=== PATIENT | female | born 1965 | race Caucasian/White ===

== ENCOUNTER 2017-04-25 09:40 | Outpatient (RCR) | payer OTHER ==
[~2017-04-25 09:40] MED LIST: ALEVE 220MG220 MG PO; CEPHALEXIN500 M1 PO; CIPRO 500MG TA500 MG PO; EC NAPROSYN500 MG PO; EC-NAPROSYN500 MG PO; EXCEDRIN TENSIO1 TAB PO; MOTRIN 200200 MG/TAB PO; NO HOME MEDICATIONS; NORCO 325 MG-51 TAB PO; PYRIDIUM 100MG100 MG PO; TYLENOL 500MG500 MG PO; ULTRAM 50MG TAB50 MG PO
== END 2017-05-25 10:38 ==
LOC: WSOH 09:40
DX: S39.012A Strain of muscle, fascia and tendon of lower back, initial encounter (principal); M62.830 Muscle spasm of back; F17.210 Nicotine dependence, cigarettes, uncomplicated; W01.198A Fall on same level from slipping, tripping and stumbling with subsequent striking against other object, initial encounter; Y99.0 Civilian activity done for income or pay

== ENCOUNTER 2018-07-15 16:18 | Inpatient (IN) | payer BC ==
[~2018-07-15] VITALS: Ht 167.6 cm; Wt 73.1 kg
[2018-07-15 16:47] LABS: COLLECTION METHOD CLEAN CATCH
[2018-07-15 16:54] LABS: BASO % 0.2 % (0.0-2.0); EOS % 0.2 % (0-4.0); GRAN # 14.2 (1.4-6.5); GRAN % 80.6 % (42.2-75.2); HEMATOCRIT 41.5 % (37.0-47.0); HEMOGLOBIN 13.9 g/dl (12.5-16.0); LYMPH # 1.9 (1.2-3.4); LYMPH % 10.8 % (20.0-51.0); MEAN CELL VOLUME 89 fl (80.0-100.0); MEAN CORPUSCULAR HEMOGLOBIN 30 pg (27.0-31.0); MEAN CORPUSCULAR HGB CONC 34 g/dl (33.0-37.0); MONO # 1.3 (0.1-0.6); MONO % 7.6 % (1.7-9.3); PLATELET COUNT 212 K/mm3 (130-400); RED BLOOD COUNT 4.69 M/mm3 (4.10-5.30); REDCELL DISTRIBUTION WIDTH-CV 12.2 % (11.5-14.5)
[2018-07-15 16:56] LABS: PH 6 (5-8); SQUAMOUS EPITHELIAL 0-2 /hpf; URINE APPEARANCE Clear; URINE BACTERIA None Seen /hpf; URINE BILIRUBIN Negative (NEGATIVE); URINE BLOOD Negative (NEGATIVE); URINE COLOR Yellow; URINE GLUCOSE 3+ (NEGATIVE); URINE KETONE Trace (NEGATIVE); URINE LEUKOCYTE ESTERASE Negative (NEGATIVE); URINE NITRATE Negative (NEGATIVE); URINE PROTEIN(semi-quant) Negative (NEGATIVE); URINE UROBILINOGEN >=4.0 mg/dL (NEGATIVE)
[2018-07-15 17:23] LABS: ALANINE AMINOTRANSFERASE 9 U/L (9-52); ALKALINE PHOSPHATASE 194 U/L (50-136); ANION GAP 12 mmol/L (7-16); AST,SGOT 21 U/L (15-37); BILIRUBIN,TOTAL 0.9 mg/dL (0.0-1.0); BLOOD UREA NITROGEN 9 mg/dL (7-17); C-REACTIVE PROTEIN 8.3 mg/dL (0.0-0.9); CALCIUM 9.5 mg/dL (8.4-10.2); CARBON DIOXIDE 19 mmol/L (22-30); CHLORIDE 105 mmol/L (98-107); CREATININE, serum 0.43 (0.52-1.25); GLUCOSE 209 mg/dL (74-106); POTASSIUM 3.8 mmol/L (3.4-5.0); SODIUM 136 mmol/L (137-145); TOTAL PROTEIN 8.1 gm/dL (6.4-8.2)
[2018-07-15 17:39] LABS: TROPONIN-I < 0.012 ng/mL (0.000-0.035)
[2018-07-15] MEDS ORDERED: ADVIL200 MG PO (19:30)
[2018-07-15] MEDS ORDERED: ALEVE 220MG220 MG PO (19:30)
[2018-07-15] MEDS ORDERED: TYLENOL 500MG500 MG PO (19:30)
[2018-07-15 19:55] VITALS: BP 178/63; PULSE 66; TEMP 98.2
[2018-07-15 20:33] VITALS: BP 114/50; PULSE 107; TEMP 98.5
--- NOTE | 2018-07-15 23:59 | NUR ---
Patient arrived to medical floor room 308 from ER at approximately 2009. Alert and oriented, and able to make needs known. Denies having pain and discomfort at this time. Peripheral IV to left forearm. NS running at 150 ml/hr at this time. Site is without redness, warmth, swelling, and pain. Has an occasional moist cough. Reports sputum is white/frothy. Unable to observe. Explained that we need to obtain a sputum culture and voices understanding. Not obtained at this time. LS CTA upper lobes, diminished lower lobes. Denies SOB and dyspnea. Reports thick yellow/green nasal drainage, non observed at this time. HRR-tachycardia. BSAx4. No edema noted. RVP collected and sent to lab. Awaiting results. Droplet precautions at this time while waiting for results. Explained to patient that UA was needed as well, and voices understanding. Not obtained at this time. Voices no questions, needs, or concerns at this time. Call light is within reach.
[2018-07-16 00:17] VITALS: BP 113/52; PULSE 105; TEMP 98
--- NOTE | 2018-07-16 02:43 | NUR ---
Urine sample obtained and taken to lab. Reminded patient that we still need a sputum sample, and voices understanding. Denies having any questions, needs, or concerns at this time. Resting in bed with call light within reach. Continues to have frequent moist cough. Remains on droplet isolation for positive rhinovirus and enterovirus. Voices understanding.
--- NOTE | 2018-07-16 03:25 | NUR ---
PT ASKED THAT I NOT WAKE HER. RESUME TX @ 0800
[2018-07-16 04:56] VITALS: BP 132/55; PULSE 103; TEMP 98
[2018-07-16 05:31] LABS: BASO % 0.3 % (0.0-2.0); EOS # 0.1 (0.0-0.7); EOS % 0.7 % (0-4.0); GRAN # 10.2 (1.4-6.5); GRAN % 74.3 % (42.2-75.2); LYMPH # 2.2 (1.2-3.4); LYMPH % 15.7 % (20.0-51.0); MEAN CELL VOLUME 91 fl (80.0-100.0); MEAN CORPUSCULAR HGB CONC 32 g/dl (33.0-37.0); MEAN PLATELET VOLUME 9.8 fl (7.4-10.4); MONO # 1.1 (0.1-0.6); MONO % 8.2 % (1.7-9.3); PLATELET COUNT 185 K/mm3 (130-400); RED BLOOD COUNT 4.05 M/mm3 (4.10-5.30); REDCELL DISTRIBUTION WIDTH-CV 12.2 % (11.5-14.5)
[2018-07-16 05:36] LABS: HEMATOCRIT 36.7 % (37.0-47.0); MEAN CORPUSCULAR HEMOGLOBIN 29 pg (27.0-31.0)
[2018-07-16 05:37] LABS: CALCIUM 8.9 mg/dL (8.4-10.2); CREATININE, serum 0.44 (0.52-1.25); HEMOGLOBIN 11.8 g/dl (12.5-16.0); POTASSIUM 3.8 mmol/L (3.4-5.0)
--- NOTE | 2018-07-16 06:11 | NUR ---
Patient continues to have moist cough. Unable to produce sputum for sputum sample at this time. NS continues to run at 150 ml/hr to right forearm. Resting in bed with eyes closed at this time. Call light is within reach.
--- NOTE | 2018-07-16 07:22 | NUR ---
Report given to day shift nurse.
[2018-07-16 07:29] VITALS: BP 131/81; PULSE 115; TEMP 98
--- NOTE | 2018-07-16 07:45 | NUR ---
PT HAD C/O HEADACHE THIS MORING. THIS NURSE ADMINSTERED PO TYLENOL, PT STATED THAT IT HAD HELPED SOME, BUT NOT COMPLELTY GOT RID OF IT.
--- NOTE | 2018-07-16 09:25 | NUR ---
Camgian MicrosystemsBrian TECH CALLED THIS NURSE, PT THI RATE ALARM ON TELLE WENT OFF AT THIS TIME. PROVIDER INTO SEE PT RIGHT NOW.
--- NOTE | 2018-07-16 09:47 | NUR ---
NENITA met with the patient to discuss discharge plan. 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 Her son, Nolan, lives in her [place] home. She reports independence with ADLs and does not use any DME. The patient does not have a PCP, but she was interested in being set up with one. NENITA provided the patient with a list of providers in [place]. The patient preferred to be set up with a PCP at the [facility]. NENITA informed the patient's nurse practitioner. The patient does not have advanced directives and she was not interested in completing them at this time. The patient plans to return home upon discharge. No additional needs at this time.
[2018-07-16 11:33] VITALS: BP 118/70; PULSE 98; TEMP 98.2
[2018-07-16 16:32] VITALS: BP 129/60; PULSE 90; TEMP 98.2
--- NOTE | 2018-07-16 17:00 | NUR ---
PT HAD C/O HEADACHE THIS AFTERNOON. STATED THAT IT HAD STILL BEEN THE SAME HEADACHE THAT IT HAS BEEN THERE, THE TYLENOL THIS MORNING HELPED ONLY A LITTLE BIT BUT HEADACHE INCREASED BACK AGAIN. THIS NURSE CALLED ANKIT AND ASKED FOR AN ORDER. ANKIT PUT IN AN ORDER FOR AN ICE PACK. THIS NURSE INFORMED PT. PT WAS EATING SUPPER AT THIS TIME, I TOLD PT THAT AFTER SUPPER WE COULD TRY THE ICE IF SHE WANTED, AND WILL PASS IT ON TO THE FLEXOGRAPHIC PRESS SET UP OPERATOR NURSE.
[2018-07-16 20:00] VITALS: BP 124/57; PULSE 88; TEMP 98.2
--- NOTE | 2018-07-16 21:07 | NUR ---
Patient assessed at aproximately 1930. Denied having any pain or discomfort at that time. Peripheral INT to right AC flushed. Site is without redness, warmth, swelling, and pain. AV fistula to left upper arm. Postive bruit and thrill. No dressing to area. Continues to have moist cough. Unable to produce sputum. Denies having SOB and dyspnea. LS with crackles in upper lobes, diminished in lower lobes. On room air during assessment, oxygen level 93% RA. HRR. BSAx4. No edema. Voices no questsions, needs, or concerns. In bed visiting with company. Call light is within reach.
--- NOTE | 2018-07-16 21:16 | NUR ---
Patient assessed at approximately 1930. Denied having pain and discomfort. Peripheral IV to right forearm with NS running at 75 ml/hr. Site is without redness, warmth, swellign, and pain. Continues to have moist cough, unable to produce any sputum. Denies having SOB and dyspnea. LS CTA. Continues have have runny nose, with yellow nasal drainage. BSAx4. No edema. Resting in bed with eyes closed at this time. Call light is within reach.
--- NOTE | 2018-07-17 04:28 | NUR ---
PATIENT LAYING IN BED WITH EYES CLOSED. PRESENTS WITH RELAXED BODY POSTURE AND EVEN NON LABORED RESPIRATIONS. ON ROOM AIR. CALL LIGHT WITHIN REACH. CONTINUES ON DROPLET PRECAUTIONS FOR RHINOVIRUS AND ENTEROVIRUS.
[2018-07-17 05:48] VITALS: BP 147/78; PULSE 76; TEMP 98.3
[2018-07-17 06:03] LABS: BASO % 0.3 % (0.0-2.0); EOS # 0.1 (0.0-0.7); EOS % 1.1 % (0-4.0); GRAN # 7.1 (1.4-6.5); GRAN % 67.3 % (42.2-75.2); HEMOGLOBIN 11.6 g/dl (12.5-16.0); LYMPH # 2.2 (1.2-3.4); LYMPH % 20.3 % (20.0-51.0); MEAN CELL VOLUME 90 fl (80.0-100.0); MEAN CORPUSCULAR HEMOGLOBIN 29 pg (27.0-31.0); MEAN CORPUSCULAR HGB CONC 33 g/dl (33.0-37.0); MONO # 1.1 (0.1-0.6); MONO % 10.5 % (1.7-9.3); PLATELET COUNT 187 K/mm3 (130-400); RED BLOOD COUNT 3.96 M/mm3 (4.10-5.30); REDCELL DISTRIBUTION WIDTH-CV 12.1 % (11.5-14.5)
[2018-07-17 06:07] LABS: HEMATOCRIT 35.6 % (37.0-47.0)
[2018-07-17 06:18] LABS: CREATININE, serum 0.43 (0.52-1.25); POTASSIUM 3.7 mmol/L (3.4-5.0)
--- NOTE | 2018-07-17 08:09 | NUR ---
PT REPORTS THAT SHE IS FEELING ALOT BETTER THIS AM. STATES THAT SHE NO LONGER HAS THE HEADACHE SHE HAD YESTERDAY. PT INQUIRING ABOUT DISCHARGE TODAY, THIS NURSE INFORMED PT THAT I WILL UPDATE HER ON ANYTHING I HEAR.
[2018-07-17 08:27] VITALS: BP 131/50; PULSE 89; TEMP 98.5
[2018-07-17] MEDS ORDERED: ZITHROMAX500 M2 PO (10:20)
[2018-07-17] MEDS ORDERED: INDERAL 10MG10 MG PO (10:20)
[2018-07-17] MEDS ORDERED: TAPAZOLE10 MG PO (10:22)
[2018-07-17] MEDS ORDERED: GLUCOPHAGE500 MG/TAB PO (10:24)
--- NOTE | 2018-07-17 10:30 | NUR ---
PT SEEN BY DR MCCLOUD AT [facility] AND WAS NOTIFIED ABOUT DISCHARGE. PT CALLED SON AND WAITING FOR SON TO COME PICK HER UP.
--- NOTE | 2018-07-17 12:20 | NUR ---
PT SON ARRIVED TO TAKE PT HOME. IV REMOVED. PT EDUCATOIN WAS PROVIDED, AND PAPERS SIGNED. THIS NURSE ESCORTED PT OUT OF FACILITY.
== END 2018-07-17 12:20 | disposition home or self-care (01) | DRG 194 ==
LOC: COL.ER 16:18 → MEDICAL 18:31 → EDBEDREQ 19:10 → MEDICAL 07-17 12:20
PROVIDERS: Emergency Medicine; Nurse Practitioner Family; ADMIT Family Medicine
DX: J18.9 Pneumonia, unspecified organism (principal); R65.10 Systemic inflammatory response syndrome (SIRS) of non-infectious origin without acute organ dysfunction; E87.2 Acidosis; E11.9 Type 2 diabetes mellitus without complications; E05.90 Thyrotoxicosis, unspecified without thyrotoxic crisis or storm; G89.29 Other chronic pain; F17.210 Nicotine dependence, cigarettes, uncomplicated; B34.8 Other viral infections of unspecified site
CPT/HCPCS: 99222-AI; 99239; A4216; J0696; J1650; J1815; J1956; J2405; J7030

== ENCOUNTER → 2018-07-30 | Outpatient (CLI) | payer BC ==
[~2018-07-30] MED LIST changes: +ADVIL200 MG PO; +GLUCOPHAGE500 MG/TAB PO; +INDERAL 10MG10 MG PO; +TAPAZOLE10 MG PO; +ZITHROMAX500 M2 PO
== END ==
LOC: COL.RAD 08:48
DX: E05.00 Thyrotoxicosis with diffuse goiter without thyrotoxic crisis or storm (principal)
CPT/HCPCS: A9516

== ENCOUNTER 2020-01-18 15:59 | Inpatient (IN) | payer BC ==
[2020-01-18] VITALS (40 sets, daily range): BP systolic 126–149; BP diastolic 61–88; PULSE 121–138; TEMP 97.3–98.5; O2SAT 84–100
[~2020-01-18] VITALS: Ht 175.3 cm; Wt 77.2 kg
[2020-01-18 16:44] LABS: HEMATOCRIT 38.7 % (37.0-47.0); HEMOGLOBIN 13.1 g/dl (12.5-16.0); MEAN CELL VOLUME 86 fl (80.0-100.0); MEAN CORPUSCULAR HEMOGLOBIN 29 pg (27.0-31.0); MEAN CORPUSCULAR HGB CONC 34 g/dl (33.0-37.0); MEAN PLATELET VOLUME 10.6 fl (7.4-10.4); PLATELET COUNT 163 K/mm3 (130-400); RED BLOOD COUNT 4.49 M/mm3 (4.10-5.30); REDCELL DISTRIBUTION WIDTH-CV 12.6 % (11.5-14.5)
[2020-01-18 16:50] LABS: INR 1.2 (0.8-3.0); PROTHROMBIN TIME 12.9 SECONDS (9.7-12.8)
[2020-01-18 17:25] LABS: THYROID STIMULATING HORMONE < 0.015 uIU/mL (0.465-4.680)
[2020-01-18 17:28] LABS: C-REACTIVE PROTEIN 38.4 mg/dL (0.0-0.9)
[2020-01-18 17:55] LABS: ALBUMIN 3.3 gm/dL (3.5-5.0); BILIRUBIN,TOTAL 1.3 mg/dL (0.0-1.0); CALCIUM 9.3 mg/dL (8.4-10.2); CREATININE, serum 0.52 (0.52-1.25); POTASSIUM 3.3 mmol/L (3.4-5.0); TOTAL PROTEIN 6.6 gm/dL (6.4-8.2)
[2020-01-18 18:29] LABS: BAND 22 % (0-10); LYMPHOCYTE 2 % (20.0-51.0); NEUTROPHILS 72 % (42.0-75.2); PLATELET ESTIMATE NORMAL (NORMAL)
[2020-01-18 18:30] LABS: TOXIC GRANULATION PRESENT
--- NOTE | 2020-01-18 22:39 | NUR ---
RECEIVED BEDSIDE REPORT FROM OR NURSE. PATIENT VS WNL. PATIENT ARRIVED TO UNIT ON OXYMASK VIA STRETCH. WILL RESUME CARE AT THIS TIME.
--- NOTE | 2020-01-18 22:45 | NUR ---
RECEIVED ORDER FROM DR. GR TO START PATIENT ON 40MG LOVENOX SUBQ ONCE DAILY AT 0700 ON 01/18.
--- NOTE | 2020-01-18 23:00 | NUR ---
RECEIVED REPORT FROM OR NURSE STATING THAT PATIENTS WOUND MEASUREMENTS WERE [id number]. 5 ROLLS OF KERLIX PACKED INSIDE WOULD. ABD PADS PLACED ON OUTSIDE OF WOUND. PATIENT WEARING MESH UNDERWEAR. INCISION SITE IS CLEAN, DRY AND INTACT. WILL CONTINUE TO MONITOR.
[2020-01-19] VITALS (730 sets, daily range): BP systolic 93–138; BP diastolic 44–71; PULSE 95–120; TEMP 97.5–98.7; O2SAT 67–100
[2020-01-19 01:27] LABS: MAGNESIUM 1.6 mg/dL (1.6-2.3); PHOSPHOROUS 3.7 mg/dL (2.5-4.5); POTASSIUM 3.2 mmol/L (3.4-5.0)
--- NOTE | 2020-01-19 02:04 | NUR ---
Vancomycin Initial Dosing Pharmacy Note Ordering provider: Noah Musa MD Indication/duration: Necrotizing fasciitis/ 10 days Relevant comorbidities: LABS: WBC = 22.7, SCr = 0.52 (Capped at 0.8) Recommendation: Will draw troughs and follow levels. Loading dose: 1.5 grams Maintenance dose: 1.5 grams every 12 hours Trough goal: 15-20 ug/mL
--- NOTE | 2020-01-19 03:00 | NUR ---
RECEIVED ORDERES FROM DOT CASTRO TO START PATIENT ON INSULIN GTT. PATIENT STARTED AT 4UNITS/HR OR 4MLS/HR BASED ON WEIGHT OF 75,5KG. BLOOD GLUCOSE PRIOR TO STARTING INSULIN GTT WAS 225. WILL CHECK BG Q1HR AND TITRATE NEEDED. WILL CONTINUE TO MONITOR
--- NOTE | 2020-01-19 03:30 | NUR ---
CALLED DR. CASTRO AND REPORTED THAT PATIENT HAD RESPIRATIONS BETWEEN 8-12 BREATHS/MIN, VS WNL, BUT BEGINNING TO SLURR WORDS AND GET CONFUSED. RECEIVED ORDER TO DECREASE DILAUDID LICENSED PROSTHETIST/ORTHOTIST PUMP CONTRINUOUS RATE TO 0.1MG
--- NOTE | 2020-01-19 04:00 | NUR ---
CALLED DR. CASTRO AND NOTIFIED OF PATIENT BEGINNING TO SLURR WORDS AND BECOMING INCREASINGLY DROWSY. PATIENT IS EASILY AROUSABLE AND A&O X4 BUT DOSES OFF FREQUENTLY. O2 SATS WNL, RESPIRATIONS 8-12 AND BLOOD PRESSURE READINGS OF SYSTOLIC 80-90S AND DIASTOLIC 50-60S. ASKED DR. CASTRO IF SHE WOULD LIKE DILAUDID PUMP DOSE CHANGED OR DISCONTINUED. STATED SHE WOULD LIKE DILAUDID PUMP KEPT IS AND CONTINUE TO MONITOR.
[2020-01-19 06:23] LABS: MEAN CELL VOLUME 89 fl (80.0-100.0); MEAN CORPUSCULAR HGB CONC 34 g/dl (33.0-37.0); MEAN PLATELET VOLUME 10.9 fl (7.4-10.4); PLATELET COUNT 147 K/mm3 (130-400); RED BLOOD COUNT 3.65 M/mm3 (4.10-5.30); REDCELL DISTRIBUTION WIDTH-CV 12.9 % (11.5-14.5)
[2020-01-19 06:29] LABS: ALBUMIN 2.5 gm/dL (3.5-5.0); BILIRUBIN,TOTAL 1.1 mg/dL (0.0-1.0); CALCIUM 7.8 mg/dL (8.4-10.2); CREATININE, serum 0.46 (0.52-1.25); POTASSIUM 3.6 mmol/L (3.4-5.0); TOTAL PROTEIN 5.4 gm/dL (6.4-8.2)
--- NOTE | 2020-01-19 06:30 | NUR ---
RECEIVED CALL FROM LAB STATING CRITICAL WBC LAB VALUE OF 21.1. TRENDING DOWN FROM WBC OF 22.7 AT ADMISSION. NURSE CALLED DANYELL AND ASKED TO SPEAK WITH PHOTOGRAPH EDITOR PHYSICIAN. NURSE WAS DIRECTED TO DR. SON NURSE WHO STATED PHOTOGRAPH EDITOR PHYSICIAN WAS ON ANOTHER CALL AND WOULD RELAY CRITICAL LAB TO DR. SANCHEZ.
--- NOTE | 2020-01-19 06:30 | NUR ---
RECEIVED CALL FROM [facility] ASKING ABOUT PATIENT STATUS IN REGARDS TO DILAUDID PUMP. NURSE STATED PATIENTS RESPIRATIONS RANGED FROM 8-16 AND O2 SATS REMAINED ABOVE 95% WITH SEVERAL BP READINGS WITH SYSTOLICS IN THE 80-90S AND DIASTOLICS IN THE 50-60S. PATIENT WAS EASILY AROUSABLE AND A&O X4. NURSE TOLD DANYELL THAT DUKE VAUGHN HAD RECENTLY SPOKE WITH DANYELL PRIOR AND HAD SHUT THE DILAUDID PUMP OFF. NURSE RELAYED THAT ENVIRONMENTAL SAMPLING TECHNICIAN DILAUDID PUMP STILL OFF. [facility] NURSE PRACTITIONER PHYSICIAN DR. MEANS'S NURSE RELAYED TO PATIENTS NURSE THAT SHE WOULD LIKE STAT ABG ORDER. PATIENTS NURSE PUT STAT ABG ORDER IN AND ABG DRAWN. PATIENT DOES NOT APPEAR TO BE IN ANY RESPIRATORY DISTRESS, VS WNL. WILL CONITNUE TO MONITOR. PATIENTS NURSE NOTIFIED DR. SON NURSE OF CRITICAL WBC LEVEL OF 21.1 AND STATED IT HAD TRENDED DOWN FROM 22.7. DR. ROBLERO NURSE STATED SHE WOULD RELAY INFORMATION TO DR. SANCHEZ. WILL CONTINUE TO MONITOR
[2020-01-19 06:33] LABS: HEMATOCRIT 32.5 % (37.0-47.0); HEMOGLOBIN 10.9 g/dl (12.5-16.0); MEAN CORPUSCULAR HEMOGLOBIN 30 pg (27.0-31.0)
[2020-01-19 06:56] LABS: ARTERIAL BLD GAS O2 SATURATION 96.3 % (92-100); ARTERIAL BLD GAS TCO2 CT 17.4; ARTERIAL BLOOD GAS BASE EXCESS -9.1 (-2-2); ARTERIAL BLOOD GAS HCO3 16.4 meq/L (22-26); ARTERIAL BLOOD GAS PCO2 34.1 mmHg (35-45); ARTERIAL BLOOD GAS PO2 93.1 mmHg (80-100)
[2020-01-19 07:01] LABS: C-REACTIVE PROTEIN 30.1 mg/dL (0.0-0.9)
[2020-01-19 07:08] LABS: BAND 22 % (0-10); EOSINOPHIL 1 % (0-4); LYMPHOCYTE 10 % (20.0-51.0); NEUTROPHILS 56 % (42.0-75.2); PLATELET ESTIMATE NORMAL (NORMAL)
--- NOTE | 2020-01-19 09:00 | NUR ---
Assessment completed, alert/oriented, vital signs stable/afebrile, alert/oriented, denies pain/ CARTRIDGE FEEDER discontinued, blood sugars in better control/ discontinuing Insulin gtt and FSBS changed to q6h, ABG showed met. acidosis and discussed plan of care with , potassium and Mag being replaced per protocol, no resp.difficulty noted and lungs CTA, heart regular/ slighty tachycardic, distal pulses are palapble, barker patent/ urine dark and we are increasing IVF rate to help with hydration, plans for surgery again for a repeat IND of vaginal/abd abscess with wound vac placement, patient NPO, SCD's in place, will contineu to monitor
--- NOTE | 2020-01-19 12:01 | NUR ---
Chaplain stylesyed outside of door of patient.
--- NOTE | 2020-01-19 13:25 | NUR ---
Settlement Processor met with the patient to complete initial intake. The patient lives in [place]. 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 The patient denies DME use and is independent with ADLs. The patient does not have a PCP but was interested in setting one up. NENITA contacted Pebbles Kory with [employer] and she states that Dr. Briggs and Dr. Toscano have openings and she will look into when the next available new patient appointement is. The patient receives medications from [facility]. The patient does not have DPOA-HC. She was not interested in DPOA-HC form. The patient has two children, Nolan and Dacia, #[phone] and #[phone], respectively. The patient prefers to contact her son Nolan with any updates. The patient to return home at discharge. NENITA collaborated the above information with the patient's nurse.
--- NOTE | 2020-01-19 15:55 | NUR ---
Patient is going to the OR at this time
--- NOTE | 2020-01-19 17:13 | NUR ---
Patient arrived back from the PACU at this time, she is drowsy but arousable, vital signs stable, does not appear to be in any acute pain or discomfort at this time, dressing C/D/I, SCD's applied, will continue to monitor
--- NOTE | 2020-01-19 17:52 | NUR ---
VS remain stable, pain is increasing and will give pain meds as needed
--- NOTE | 2020-01-19 22:25 | NUR ---
PT ALERT AND ORIENTED X 4, ON ROOM AIR, VSS, COMNPLAINS OF PAIN 09/14-GIVEN PRN NORCO EITH REPORTS OF SLIGHT RELIEF. PT TACHYCARDIC AT 110'S. LUNGS CTA. PT HAS GOOD APPETITE AND PASSING GAS, WILL BE NPO AT 0600 FOR PLANNED I&D. BRUMFIELD DRAINING ALBERTINA AND CLOUDY, AWARE DURING THE DAY HENCE IVF INCREASED. ALL PERIPHERAL AND CENTRAL LINE FLUSHING GOOD. DRESSING ON VULVA/LEFT GROIN/PANNUS C/D/I. WILL CONTINUE TO MONITOR.
[2020-01-20] VITALS (530 sets, daily range): BP systolic 110–149; BP diastolic 53–71; PULSE 99–122; TEMP 97.9–98.4; O2SAT 82–100
--- NOTE | 2020-01-20 00:25 | NUR ---
WILL HOLD LOVENOX IN AM PT IS GOING FOR SURGERY AT 133O. DOUBLE CHECKED WITH E-PHARMACY AND AGEED WITH PLAN.
--- NOTE | 2020-01-20 00:55 | NUR ---
PT'S HR MOSTLY AT 115-120'S, ST WITH PACS' PER FOREST MEDICAL RECORD ASSISTANT. VSS. PT ASYMPTOMATIC AND SLEEPING. PAIN MEDICATION GIVEN AN HOUR AGO. PARAMETERS CHANGED PER PA'S ORDER. WILL CONTINUE TO MONITOR.
[2020-01-20 03:38] LABS: COLLECTION METHOD CLEAN CATCH
[2020-01-20 03:47] LABS: MUCOUS Present /lpf; PH 6 (5-8); SQUAMOUS EPITHELIAL 0-2 /hpf; URINE APPEARANCE Clear; URINE BACTERIA None Seen /hpf; URINE BILIRUBIN Negative (NEGATIVE); URINE BLOOD 1+ (NEGATIVE); URINE COLOR Yellow; URINE GLUCOSE 3+ (NEGATIVE); URINE KETONE 2+ (NEGATIVE); URINE LEUKOCYTE ESTERASE Negative (NEGATIVE); URINE NITRATE Negative (NEGATIVE); URINE PROTEIN(semi-quant) Negative (NEGATIVE)
--- NOTE | 2020-01-20 03:58 | NUR ---
PT'S HR HAS BEEN SUSTAINING ON THE 120-125'S AND JUMPS UP TO 130'S IF GET WORKED UP. PT'S VSS STABLE THOUGH EXCEPT FOR HEART RATE. PT COMPLAINTS OF PAIN /, DILAUDID PRN GIVEN. THIS RN CALLED DANYELL AND UPDATED THE NURSE MD IS IN ANOTHER LINE.
--- NOTE | 2020-01-20 04:07 | NUR ---
DRESSING TO OPERATIVE SITE(LEFT LOWER ABDOMEN/PANNUS/VULVA) CHANGED. NEW ABDOMINAL GAUZE APPLIED. KERLIX PACKING LEFT INSIDE WOUND AND ONLY CHANGED ABDOMINAL PAD. NOW C/D/I.
[2020-01-20 05:24] LABS: BASO # 0.1 (0.0-0.2); BASO % 0.8 % (0.0-2.0); EOS # 0.1 (0.0-0.7); EOS % 0.4 % (0-4.0); GRAN # 13.3 (1.4-6.5); GRAN % 83.3 % (42.2-75.2); HEMOGLOBIN 10.9 g/dl (12.5-16.0); LYMPH # 1.4 (1.2-3.4); LYMPH % 8.6 % (20.0-51.0); MEAN CELL VOLUME 88 fl (80.0-100.0); MEAN CORPUSCULAR HEMOGLOBIN 30 pg (27.0-31.0); MEAN CORPUSCULAR HGB CONC 34 g/dl (33.0-37.0); MEAN PLATELET VOLUME 10.6 fl (7.4-10.4); MONO # 0.9 (0.1-0.6); MONO % 5.5 % (1.7-9.3); PLATELET COUNT 175 K/mm3 (130-400); RED BLOOD COUNT 3.65 M/mm3 (4.10-5.30); REDCELL DISTRIBUTION WIDTH-CV 13.2 % (11.5-14.5)
[2020-01-20 05:29] LABS: HEMATOCRIT 32.1 % (37.0-47.0)
[2020-01-20 05:32] LABS: CREATININE, serum 0.45 (0.52-1.25); POTASSIUM 3.8 mmol/L (3.4-5.0)
--- NOTE | 2020-01-20 08:00 | NUR ---
Assessment completed, drowsy but arousable and alert/oriented x4, reporting moderated left lower abd/groin pain at her wound side, [place] and dilaudid given and also repositioning for comfort as well, patient is more tachycardic today rate 120-140/ Sinus on tele with PAC's and [facility] is notified and aware, starting on PO Propranolol, also encouraging patient to do cough/deep breathing exercises as well to help keep lungs expanded and prevent PNA, educated on importance of this as she is a smoker and a high risk, lungs are CTA with diminished lower lobes, assisted with Oral hygiene as well as provided cath care, barker cath is patent and urine output is good, still has IVF infusing at 125/hr, she is now NPO for repeat trip to OR later today for another irrigation/debridement of wound, patient understands plan of care and is cooperative, denies other needs at this time
--- NOTE | 2020-01-20 13:30 | NUR ---
Patient is going to OR for irrigation and debridment of left abd/ groin wound
--- NOTE | 2020-01-20 15:23 | NUR ---
Patient is transferring to the Surgical floor room 324, I have called report to receiving nurse DUKE Chun, patient is currently still in OR and will go to room 324 directly from PACU
--- NOTE | 2020-01-20 16:07 | NUR ---
patient arrived to room 324 from PACU at this times, she is drowsy but arousable, vital signs stable/ still slightly tachycardic, reports some moderate pain and requesting pain meds, taking PO sips at this time, will continue to monitor
--- NOTE | 2020-01-20 18:20 | NUR ---
Patient is doing well post-op, vital signs stable, pain is now better controlled, she is drowsy but arousable, tolerating PO fluids
--- NOTE | 2020-01-20 21:00 | NUR ---
PATIENT ORIENTED X4, BUT DROWSY. DENIES PAIN. FLUIDS INFUSING. SCDS ON. GAVE PATIENT BROTH REQUESTED.
--- NOTE | 2020-01-20 21:30 | NUR ---
CONSENT SIGNED FOR SURGERY TOMORROW.
[2020-01-21] VITALS (13 sets, daily range): BP systolic 127–154; BP diastolic 39–81; PULSE 71–136; TEMP 97.3–99.3
--- NOTE | 2020-01-21 04:55 | NUR ---
PATIENT WAS INCONTINENT OF STOOL. CLEANED PATIENT UP, CHANGED ABD PADS AND MESH UNDERWEAR.
[2020-01-21 06:37] LABS: BASO # 0.1 (0.0-0.2); BASO % 0.6 % (0.0-2.0); EOS # 0.1 (0.0-0.7); EOS % 0.5 % (0-4.0); GRAN # 14.3 (1.4-6.5); GRAN % 82.6 % (42.2-75.2); HEMOGLOBIN 11.4 g/dl (12.5-16.0); LYMPH # 1.5 (1.2-3.4); LYMPH % 8.7 % (20.0-51.0); MEAN CELL VOLUME 89 fl (80.0-100.0); MEAN CORPUSCULAR HEMOGLOBIN 29 pg (27.0-31.0); MEAN CORPUSCULAR HGB CONC 33 g/dl (33.0-37.0); MEAN PLATELET VOLUME 10.9 fl (7.4-10.4); MONO # 1.1 (0.1-0.6); MONO % 6.4 % (1.7-9.3); PLATELET COUNT 198 K/mm3 (130-400); RED BLOOD COUNT 3.91 M/mm3 (4.10-5.30); REDCELL DISTRIBUTION WIDTH-CV 13.2 % (11.5-14.5)
[2020-01-21 06:39] LABS: ALBUMIN 2.6 gm/dL (3.5-5.0); BILIRUBIN,TOTAL 1.3 mg/dL (0.0-1.0); CALCIUM 8.8 mg/dL (8.4-10.2); CREATININE, serum 0.44 (0.52-1.25); HEMATOCRIT 34.7 % (37.0-47.0); MAGNESIUM 1.6 mg/dL (1.6-2.3); POTASSIUM 3.6 mmol/L (3.4-5.0); TOTAL PROTEIN 5.6 gm/dL (6.4-8.2)
--- NOTE | 2020-01-21 08:57 | NUR ---
Pebbles Horn contacted Food Safety Auditor and reports that Dr. Briggs can take patient as her PCP. An appointment will need to be set up as soon as there is a solid discharge date. SW collaborated the above information with the surgical floor SW.
--- NOTE | 2020-01-21 10:00 | NUR ---
Patient alert and oriented, answers questions appropriately. See assessment. Left groin, LLQ dressing with scant drainage noted. Simons catheter patent and draining dark yellow urine. Lung sounds coarse in bases, clear in upper lobes. No c/o at this time.
--- NOTE | 2020-01-21 13:48 | NUR ---
Rubber Molder collaborated with DOT Benavides about discharge planning. Patient may be a candidate for [facility]. Makayla is unsure of discharge date at this time as it will depend who her procedure goes today. NENITA contacted Santiago at [facility] and faxed a referral. Santiago advised that the [place], [place] location is reviewing her case to determine if she qualifies. NENITA will continue to follow.
--- NOTE | 2020-01-21 16:55 | NUR ---
Returns from surgery at this time. Wound vac in place to right groin, RLQ. No c/o at this time.
--- NOTE | 2020-01-21 19:38 | NUR ---
RECEIVED CHANGE OF SHIFT REPORT FROM DAY SHIFT NURSEMIESHA. RECTAL TUBE PLACE PER D.O. TELE IN PLACE. IVF INFUSING WITH NO PROBLEMS.
--- NOTE | 2020-01-21 19:40 | NUR ---
HR INCREASES WITH ACTIVITY, PATIENT DENIES CHEST PAIN OR SHORTNESS OF BREATH DURING ELEVATED HR.
--- NOTE | 2020-01-21 20:00 | NUR ---
WOUND VAC IN PLACE AND IS PATENT, NO CHANGES IN TREATMENT SETTINGS. TELE IN PLACE, DENIES SHORTNESS OF BREATH/CHEST PAIN. OBSERVED NONPRODUCTIVE COARSE SOUNDING COUGH. PATIENT DROWSY, AROUSES WITH NAME CALLED.
[2020-01-22 03:54] VITALS: BP 136/55; PULSE 100; TEMP 98.8
[2020-01-22 06:44] LABS: BASO # 0.1 (0.0-0.2); BASO % 0.4 % (0.0-2.0); EOS # 0.1 (0.0-0.7); EOS % 0.8 % (0-4.0); GRAN % 79.1 % (42.2-75.2); HEMOGLOBIN 10.6 g/dl (12.5-16.0); LYMPH # 1.5 (1.2-3.4); LYMPH % 10.8 % (20.0-51.0); MEAN CELL VOLUME 86 fl (80.0-100.0); MEAN CORPUSCULAR HEMOGLOBIN 29 pg (27.0-31.0); MEAN CORPUSCULAR HGB CONC 34 g/dl (33.0-37.0); MEAN PLATELET VOLUME 10.3 fl (7.4-10.4); MONO # 1.1 (0.1-0.6); MONO % 7.6 % (1.7-9.3); PLATELET COUNT 183 K/mm3 (130-400); RED BLOOD COUNT 3.66 M/mm3 (4.10-5.30); REDCELL DISTRIBUTION WIDTH-CV 12.9 % (11.5-14.5)
--- NOTE | 2020-01-22 07:00 | NUR ---
CHANGE OF SHIFT REPORT GIVEN TO DAY SHIFT NURSESANDRO.
[2020-01-22 07:01] LABS: CALCIUM 8.3 mg/dL (8.4-10.2); CREATININE, serum 0.37 (0.52-1.25); MAGNESIUM 1.5 mg/dL (1.6-2.3)
[2020-01-22 07:07] LABS: HEMATOCRIT 31.4 % (37.0-47.0)
[2020-01-22 07:11] LABS: POTASSIUM 2.8 mmol/L (3.4-5.0)
[2020-01-22 08:00] VITALS: BP 144/62; PULSE 109; TEMP 98.9
[2020-01-22 11:04] VITALS: BP 90/73; PULSE 98; TEMP 97.4
--- NOTE | 2020-01-22 15:30 | NUR ---
Hemstitcher met with patient to discuss discharge planning. NENITA advised referrals were sent to [facility] and [facility], with locations in [place] and [place], [place]. Patient is tearful and misses her family. NENITA contacted Santiago at [facility] who advised [facility] may have a bed early next week. Santiago advised that patient will likely qualify. NENITA also contacted Ayo at [facility] who advised they can clinically accept but the earliest they would have a bed would be Sunday. NENITA will continue to follow.
[2020-01-22 15:35] VITALS: BP 138/70; PULSE 96; TEMP 98.4
--- NOTE | 2020-01-22 17:49 | NUR ---
Patient resting in bed at this time. Patient is alert and oriented, answers questions appropriately when awake. Patient rouses easily but falls back asleep quickly. Potassium was critically low this morning, reported to hospital PA, replaced per order and protocol. IV antibiotics per order. This evening patient c/o feeling hot. Patient is visibly flushed in face and chest, no flushing on torso, arms, or legs. Patient denied pain or itching. Reported to hospitalist PA and pharmacist. Recieved order for and administered PO benedryl, will draw vancomycin trough and administer it at half the rate per order. Rectal tube remains in place per order, soft brown stool visible. Simons in place, urine is clear and yellow. Wound vac per order. Patient denies needs, call light within reach.
[2020-01-22 19:31] VITALS: BP 152/75; PULSE 105; TEMP 97.3
--- NOTE | 2020-01-22 20:00 | NUR ---
Patient in bed, alert and oriented x 3. Assessment complete. Holmes given at approximatly 1950 for left groin/abd pain of 8/10. Wound vac in place to left groin. Rectal tube with brown loose stool noted. Simons to dependent drainge with clear yellow urine present. Right IJ without complications, antibiotics infusing per orders. Right forarm INT without complications noted. O2 via NC at 2L. SCDs to BLE. Denies further needs at this time. Patient repositioned at this itme.
--- NOTE | 2020-01-22 21:00 | NUR ---
Patient having stool seep around rectal tube, pericare provided. Catheter care provided.
--- NOTE | 2020-01-22 21:55 | NUR ---
Patient having increased redness around face and chest since initiating Vancomycin infusion, notified hospitalist and additional dose of benadryl given at this time. No further needs at this time.
[2020-01-22 23:55] VITALS: BP 146/63; PULSE 91; TEMP 97.9
[2020-01-23] VITALS (11 sets, daily range): BP systolic 120–142; BP diastolic 48–73; PULSE 67–103; TEMP 97.7–98.2
--- NOTE | 2020-01-23 05:51 | NUR ---
Patient has done well throughout the day. Minimal needs, repositioned throughout the night. Pericare provided, patient having stool around rectal tube, attempted to reposition tube. Simons maintained to DD with clear yellow urine in bag. Wound vac maintined with serous fluid in canister. Right IJ with antibiotics infusing at this time. Pain meds given per orders. Denies further needs at this time. Will report off to day shift.
[2020-01-23 06:13] LABS: HEMATOCRIT 32.3 % (37.0-47.0); HEMOGLOBIN 10.6 g/dl (12.5-16.0); MEAN CELL VOLUME 87 fl (80.0-100.0); MEAN CORPUSCULAR HEMOGLOBIN 29 pg (27.0-31.0); MEAN CORPUSCULAR HGB CONC 33 g/dl (33.0-37.0); MEAN PLATELET VOLUME 10.8 fl (7.4-10.4); PLATELET COUNT 183 K/mm3 (130-400); RED BLOOD COUNT 3.71 M/mm3 (4.10-5.30); REDCELL DISTRIBUTION WIDTH-CV 12.7 % (11.5-14.5)
[2020-01-23 06:25] LABS: ALBUMIN 2.3 gm/dL (3.5-5.0); BILIRUBIN,TOTAL 1.2 mg/dL (0.0-1.0); CREATININE, serum 0.37 (0.52-1.25); MAGNESIUM 1.7 mg/dL (1.6-2.3); POTASSIUM 3.2 mmol/L (3.4-5.0); TOTAL PROTEIN 5.5 gm/dL (6.4-8.2)
--- NOTE | 2020-01-23 08:00 | NUR ---
PATIENT IS ORIENTED BUT DROWSY THIS AM. VSS WITH TELE INPLACE. AFEBRILE. REPORTS MILD DISCOMFORT IN LABIA, DENIES NEED FOR PAIN MEDS. WOUND VAC INPLACE WITH SMALL AMOUNT OF OUTPUT NOTED THIS AM. PATIENT SCHEDULED TO GO TO THE OR AGAIN TODAY, CONSENT ON CHART. NPO. BS THIS AM WAS 135. NO C/O N/V. IV FLUIDS, ANTIBIOTICS & POTASSIUM REPLACEMENT INFUSING VIA PUMPS INTO RIGHT IJ. BRUMFIELD TO DD WITH MOD AMOUNTS OF CLEAR YELLOW URINE NOTED. RECTAL TUBE INPLACE WITH MOD AMOUNTS OF SEMI-LIQUID STOOL NOTED. HEAD TO TOE ASSESSMENT COMPLETE. AM MEDS GIVEN. PATIENT SLEEPING WITH CALL LIGHT IN REACH.
--- NOTE | 2020-01-23 10:38 | NUR ---
Initial visit; Patient thanked Infrastructure Solutions Architect for looking in on her, visiting and offering prayer and God's blessings for a happy, healthier New Year.
--- NOTE | 2020-01-23 11:30 | NUR ---
HOSPITALIST AT BEDSIDE. SEE NEW ORDERS.
--- NOTE | 2020-01-23 11:40 | NUR ---
PATIENT GOING DOWN TO OR VIA BED. CONSENT ON CHART.
--- NOTE | 2020-01-23 13:35 | NUR ---
PATIENT BACK IN ROOM 324 POST OP WOUND VAC CHANGE. ORIENTED BUT DROWSY. VSS. POSITIONED PATIENT SLIGHTLY TO RIGHT SIDE WITH PILLOW. PATIENT RESTING COMFORTABLY. WOUND VAC TO 125 OF CONTINUOUS SUCTION WITH SMALL AMOUNTS OF DRAINAGE NOTED. HEAD TO TOE ASSESSMENT COMPLETED. NO ASSESSMENT CHANGES FROM THIS MORNING.
--- NOTE | 2020-01-23 15:05 | NUR ---
Refiner Operator contacted Ayo at [facility] who advised they could have a bed available for patient on Sunday. NENITA faxed clinical updates to Ayo at [facility] so authorization can be submitted. NENITA provided update to Santiago at [facility] that [facility] would submit for auth. NENITA met with patient to review discharge plan. Patient verbalized understanding. NENITA contacted patient's son, Nolan to also provide update on discharge plan. NENITA will continue to follow.
--- NOTE | 2020-01-23 16:36 | NUR ---
Ayo from [facility] advised they have received insurance authorization.
[2020-01-24 04:20] VITALS: BP 122/56; PULSE 105; TEMP 97.5
[2020-01-24 06:57] VITALS: BP 136/54; PULSE 89; TEMP 98
--- NOTE | 2020-01-24 08:00 | NUR ---
Patient resting in bed. Tolerated breakfast. K+ per protocol, labs drawn via central line. Patient wound vac to 125mg suctions per orders, dressing intact. Rectal tube, and barker with adequate output. Scds ble.
--- NOTE | 2020-01-24 08:16 | NUR ---
PT FLUSHED IN THE FACE AT BEGINNING OF SHIFT. RATES PAIN MOST OF THE NIGHT AT 7-8. WAS GIVEN NORCO 5/325 X 3 DURING THIS SHIFT. RIGHT IJ IN PLACE AND ANTIBIOTICS GIVEN WITH NO PROBLEMS. HELPS WITH REPOSITIONING. WOUND VAC REMAINS AT 125. RECTAL TUBE IN PLACE. BRUMFIELD CATH TO DD WITH YELLOW URINE. SCD'S ON AND REMOVED FOR ABOUT 30MIN AND THEN REPLACED. CALL LIGHT WITHIN REACH. SLEEPS FAIR. BED ALARM ON.
--- NOTE | 2020-01-24 10:30 | NUR ---
Patient up to chair with 2 assist. Therapy assisted. Patient provided with hygiene. Simons care, rectal tube care. new linens. shower cap. She was thankful for cares provided & glad to be out of bed.
[2020-01-24 11:49] VITALS: BP 102/65; PULSE 108; TEMP 97.8
--- NOTE | 2020-01-24 12:48 | NUR ---
Patient continues to sit up in chair. She stood & repositioned to a more comfortable postion in chair. 2 view chest xray completed. Insulin per high sliding scale for elevated blood sugar. Trying Motrin Prn for pain relief to try something different. Wound vac continue per orders.
[2020-01-24 16:00] VITALS: BP 97/49; PULSE 103; TEMP 97.8
--- NOTE | 2020-01-24 18:16 | NUR ---
Patient back to chair for dinner, Stronger this time when up. Tolerating diet. antibioitcs per orders. Rectal tube in place, pericare provided. Simons with adequate output. Wound vac continues per orders. Patient thankful for cares and in positive spirits
[2020-01-24 20:18] VITALS: BP 111/52; PULSE 107; TEMP 98.5
[2020-01-24 23:42] VITALS: BP 118/59; PULSE 80; TEMP 97.7
[2020-01-25] VITALS (7 sets, daily range): BP systolic 110–128; BP diastolic 51–65; PULSE 79–105; TEMP 97.5–98.6
[2020-01-25 06:09] LABS: HEMOGLOBIN 10.6 g/dl (12.5-16.0); MEAN CELL VOLUME 88 fl (80.0-100.0); MEAN CORPUSCULAR HEMOGLOBIN 29 pg (27.0-31.0); MEAN CORPUSCULAR HGB CONC 33 g/dl (33.0-37.0); MEAN PLATELET VOLUME 10.4 fl (7.4-10.4); PLATELET COUNT 201 K/mm3 (130-400); RED BLOOD COUNT 3.68 M/mm3 (4.10-5.30); REDCELL DISTRIBUTION WIDTH-CV 12.8 % (11.5-14.5)
[2020-01-25 06:11] LABS: CREATININE, serum 0.36 (0.52-1.25); MAGNESIUM 1.8 mg/dL (1.6-2.3); POTASSIUM 3.6 mmol/L (3.4-5.0)
[2020-01-25 06:26] LABS: HEMATOCRIT 32.5 % (37.0-47.0)
--- NOTE | 2020-01-25 06:45 | NUR ---
awake and resting in bed, bedside shift report received from DUKE Bustamante
--- NOTE | 2020-01-25 07:43 | NUR ---
PT HAD A QUIET NIGHT. HAS REQUESTED PAIN MED ALMOST EVERY 4 HOURS. RECTAL TUBE HAD COME OUT WITH RING STILL INFLATED. SMALL AMT BM CLEANED FROM AROUND RECTAL AREA. THICK, GREENISH STOOL IN TUBE. STATES SHE FELT A REALLY HARD THING COME FROM HER RECTUM. HAS REMAINED WITHOUT ANY BM THE REST OF THE NIGHT. SCD'S ON BILAT LE MOST OF THIS SHIFT. RIGHT IJ REMAINS IN PLACE. WHITE LINE UNABLE TO FLUSH. LAB DRAWN THIS AM. CALL LIGHT WITHIN REACH. BRUMFIELD TO DD. WOUND VAC CONTINUES AT 125 SUCTION.
--- NOTE | 2020-01-25 07:45 | NUR ---
called asking to get up to have bowel movement, assisted up to bedside commode and had semi formed dark green stool, then assisted back to bed, full assessment completed, see interventions for further info, c/o pain and medicated with hydrocodone 5mg 1 tab, Dr Lakhani's in to see patient, she is ready to rest and let pain pill take effect, denies other needs
--- NOTE | 2020-01-25 09:56 | NUR ---
assisted up to bedside commode, then physical therapy in and assisted her off commode and over and into recliner, moves well with steady gait
--- NOTE | 2020-01-25 11:22 | NUR ---
remains up in recliner, denies needs
--- NOTE | 2020-01-25 12:01 | NUR ---
up in chair and having lunch, denies needs
--- NOTE | 2020-01-25 12:07 | NUR ---
O2 was removed when she got up into recliner, O2 sat on room air is 96%, will leave O2 off
--- NOTE | 2020-01-25 12:41 | NUR ---
assisted out of recliner and then back to bed, c/o pain and medicated with hydrocodone 5mg po
--- NOTE | 2020-01-25 12:56 | NUR ---
bedside shift report given to DUKE Macedo
--- NOTE | 2020-01-25 18:45 | NUR ---
Patient sittingup in the recliner finishing up dinner. A&Ox4. VSS. IV CDI. Wound vac CDI. Simons dependent drainage clear yellow. Pain reported in lower abdomen, pain medication given when requested. No further needs expressed from the patient. Call light within reach
--- NOTE | 2020-01-25 21:00 | NUR ---
PATIENT UP TO CHAIR WATCHING TV. PATIENT HAS COMPLAINTS OF PAIN. PATIENT IS AMBULATING WELL TO [facility]. WOUND VAC INTACT. PATIENT'S SUTURES ARE LOOSE AROUND IJ. TRIED TO PUT TEGADERM OVER IT SO IT WAS NOT PULLING BUT PATIENT REPORTED THIS CAUSED MORE PAIN. CLEANED OFF AND LEFT OPEN TO AIR.
[2020-01-26 04:17] VITALS: BP 115/72; PULSE 78; TEMP 98.2
--- NOTE | 2020-01-26 05:11 | NUR ---
PATIENT HAD PAIN THROUGHOUT THE NIGHT AND RECIEVED NORCO AND MOTRIN. PATIENT HAD NO OTHER COMPLAINTS.
[2020-01-26 06:18] LABS: HEMOGLOBIN 10.5 g/dl (12.5-16.0); MEAN CELL VOLUME 90 fl (80.0-100.0); MEAN CORPUSCULAR HEMOGLOBIN 29 pg (27.0-31.0); MEAN CORPUSCULAR HGB CONC 33 g/dl (33.0-37.0); MEAN PLATELET VOLUME 10.7 fl (7.4-10.4); PLATELET COUNT 222 K/mm3 (130-400); RED BLOOD COUNT 3.58 M/mm3 (4.10-5.30); REDCELL DISTRIBUTION WIDTH-CV 12.9 % (11.5-14.5)
[2020-01-26 06:29] LABS: ALBUMIN 2.3 gm/dL (3.5-5.0); BILIRUBIN,TOTAL 0.4 mg/dL (0.0-1.0); CALCIUM 7.9 mg/dL (8.4-10.2); CREATININE, serum 0.41 (0.52-1.25); MAGNESIUM 1.9 mg/dL (1.6-2.3); POTASSIUM 3.8 mmol/L (3.4-5.0); TOTAL PROTEIN 5.7 gm/dL (6.4-8.2)
[2020-01-26 06:31] LABS: HEMATOCRIT 32.2 % (37.0-47.0)
[2020-01-26 08:31] VITALS: BP 106/44; PULSE 80; TEMP 97.6
--- NOTE | 2020-01-26 08:45 | NUR ---
PATIENT CONSENT FORM SIGNED AND ON PATIENT CHART. SHIFT ASSESSMENT COMPLETED AT THIS TIME.
--- NOTE | 2020-01-26 11:58 | NUR ---
DOT [place] CALLED AND NOTIFIED THAT THE PATIENT HAD A SUCCESSFUL PICC LINE PLACEMENT. TORB GIVEN TO REMOVE PATIENTS RIGHT INTERNAL JUGULAR CENTRAL LINE FROM DOT HARGROVE TO THIS NURSE. ORDER ENTERED BY THIS NURSE.
[2020-01-26] MEDS ORDERED: ROCEPHIN 2GM VIAL21 IJ (12:09)
[2020-01-26] MEDS ORDERED: FLAGYL 500500 MG/100 IV (12:11)
[2020-01-26] MEDS ORDERED: INDERAL 10MG10 MG PO (12:17)
[2020-01-26] MEDS ORDERED: NORCO 325 MG-51 TAB PO (12:19)
[2020-01-26] MEDS ORDERED: MAG-OX 400400 MG/TAB PO (12:20)
[2020-01-26] MEDS ORDERED: TAPAZOLE10 MG PO (12:20)
[2020-01-26] MEDS ORDERED: HCTZ12.5TAB PO (12:20)
--- NOTE | 2020-01-26 12:39 | NUR ---
The patient is to tentatively discharge to [facility] today, 01/25 to room #413 and accepting physican is Dr. Willett. The patient is to have a wet to dry put on her wound this day and will not be able to discharge until 5:30 or 6pm. NENITA contacted Ayo with [facility] and he reports they will be able to accomodate the patient if she discharges at that time. NENITA contacted [facility] and they will be able to clam picker the patient to transfer in-between 5:30 and 6 pm. NENITA collaborated the above information with the team, they were in agreeance.
[2020-01-26 13:17] VITALS: BP 137/57; PULSE 81; TEMP 98.3
[2020-01-26 15:53] VITALS: BP 108/57; PULSE 76; TEMP 97.4
--- NOTE | 2020-01-26 17:28 | NUR ---
PATIENT TAKEN TO PERIOP VIA BED. CONSENT ON CHART. IV FLUIDS TO GRAVITY FLOW TUBING. WILL WAIT FOR PATIENT RETURN TO ROOM 323 POST-OP.
--- NOTE | 2020-01-26 17:50 | NUR ---
THIS NURSE ATTEMPTED TO CALL REPORT TO TRANSFERRING FACILITY. NURSE TO CALL BACK FOR REPORT.
[2020-01-26 18:11] VITALS: BP 108/57; PULSE 76; TEMP 97.4
[2020-01-26 18:15] VITALS: BP 127/57; PULSE 98; TEMP 97.7
--- NOTE | 2020-01-26 18:15 | NUR ---
PATIENT ARRIVED BACK TO ROOM 324 VIA BED FROM PACU POST PROCEDURE. VSS. O2 AT 3L VIA NASAL CANNULA. PATIENT EATING DINNER TRAY. REPORT GIVEN TO DUKE FERRARA.
--- NOTE | 2020-01-26 18:28 | NUR ---
REPORT CALLED TO DUKE ESTRELLA AT [facility] IN [place].
--- NOTE | 2020-01-26 18:35 | NUR ---
EMS ARRIVED. NO EMS PAPER WORK FOUND. BID CLERK NOTIFIED.
--- NOTE | 2020-01-26 18:57 | NUR ---
PRN PO PAIN PILL GIVEN PRIOR TO TRANSPORT.
--- NOTE | 2020-01-26 19:23 | NUR ---
RECEIVED CHANGE OF SHIFT REPORT FROM DAY SHIFT NURSE. PATIENT THEN WAS DISMISSED PER EMS TO BE TRANSFERED TO [facility] IN . TRANSFER PPW SIGNED AND COPIES SENT WITH EMS STAFF. PATIENT WITH NO FURTHER NEEDS OR CONCERNS AT TIME OF D/C. [place] IN PLACE.
== END 2020-01-26 19:30 | DRG 853 ==
LOC: COL.ER 15:59 → ICU 20:01 → SURG 20:01
PROVIDERS: Emergency Medicine; Internal Medicine; Internal Medicine Pulmonary Disease; Physician Assistant; Surgery; ADMIT Family Medicine
PROC: 0UBM0ZZ Excision of Vulva, Open Approach (ICD-10-PCS; 2020-01-18)
PROC: 0YB60ZZ Excision of Left Inguinal Region, Open Approach (ICD-10-PCS; 2020-01-18)
PROC: 0WBF0ZZ Excision of Abdominal Wall, Open Approach (ICD-10-PCS; principal; 2020-01-18 21:00)
PROC: 0YB60ZZ Excision of Left Inguinal Region, Open Approach (ICD-10-PCS; 2020-01-19)
PROC: 0YQ Anatomical Regions, Lower Extremities, Repair (ICD-10-PCS; 2020-01-20)
PROC: 2W17X6Z Compression of Left Inguinal Region using Pressure Dressing (ICD-10-PCS; 2020-01-21)
PROC: 2W07X6Z Change Pressure Dressing on Left Inguinal Region (ICD-10-PCS; 2020-01-23)
PROC: 2W07X6Z Change Pressure Dressing on Left Inguinal Region (ICD-10-PCS; 2020-01-26)
PROC: 02HV33Z Insertion of Infusion Device into Superior Vena Cava, Percutaneous Approach (ICD-10-PCS; 2020-01-26)
DX: A41.9 Sepsis, unspecified organism (principal); M72.6 Necrotizing fasciitis; J96.01 Acute respiratory failure with hypoxia; N75.1 Abscess of Bartholin's gland; E87.1 Hypo-osmolality and hyponatremia; R65.20 Severe sepsis without septic shock; E11.65 Type 2 diabetes mellitus with hyperglycemia; E05.90 Thyrotoxicosis, unspecified without thyrotoxic crisis or storm; Z20.828 Contact with and (suspected) exposure to other viral communicable diseases; E83.42 Hypomagnesemia; K21.9 Gastro-esophageal reflux disease without esophagitis; R00.0 Tachycardia, unspecified; E87.6 Hypokalemia; E66.9 Obesity, unspecified; F17.210 Nicotine dependence, cigarettes, uncomplicated; Z79.1 Long term (current) use of non-steroidal anti-inflammatories (NSAID); Z79.84 Long term (current) use of oral hypoglycemic drugs; Z91.14 Patient's other noncompliance with medication regimen
CPT/HCPCS: 99231-AI; 99232-AI; 99233-AI; 99239; A4314; A6550; A9284; C1751; J0330; J0690; J0696; J1100; J1170; J1650; J1815; J1940; J2250; J2270; J2405; J2543; J2704; J3010; J3370; J3475; J3480; J7030; J7050; J7120; Q9967

== ENCOUNTER 2020-07-18 06:21 | Inpatient (IN) | payer BC ==
[~2020-07-18] VITALS: Ht 167.6 cm; Wt 89.4 kg
[2020-07-18] VITALS (159 sets, daily range): BP systolic 104–112; BP diastolic 49–63; PULSE 103–109; TEMP 97.8; O2SAT 78–99
[~2020-07-18 06:21] MED LIST changes: +FLAGYL 500500 MG/100 IV; +HCTZ12.5TAB PO; +MAG-OX 400400 MG/TAB PO; +ROCEPHIN 2GM VIAL21 IJ
[2020-07-18 06:35] LABS: HEMATOCRIT 46.6 % (37.0-47.0); HEMOGLOBIN 14.3 g/dl (12.5-16.0); MEAN CELL VOLUME 100 fl (80.0-100.0); MEAN CORPUSCULAR HEMOGLOBIN 31 pg (27.0-31.0); MEAN CORPUSCULAR HGB CONC 31 g/dl (33.0-37.0); MEAN PLATELET VOLUME 9.8 fl (7.4-10.4); PLATELET COUNT 309 K/mm3 (130-400); RED BLOOD COUNT 4.64 M/mm3 (4.10-5.30); REDCELL DISTRIBUTION WIDTH-CV 11.9 % (11.5-14.5)
[2020-07-18 06:46] LABS: ALANINE AMINOTRANSFERASE 26 U/L (4-34); ALBUMIN 4.4 gm/dL (3.5-5.0); ALKALINE PHOSPHATASE 89 U/L (50-136); ANION GAP 17 mmol/L (7-16); AST,SGOT 34 U/L (15-37); BILIRUBIN,TOTAL 0.3 mg/dL (0.0-1.0); BLOOD UREA NITROGEN 17 mg/dL (7-17); CALCIUM 9.4 mg/dL (8.4-10.2); CARBON DIOXIDE 16 mmol/L (22-30); CHLORIDE 107 mmol/L (98-107); POTASSIUM 3.7 mmol/L (3.4-5.0); SODIUM 139 mmol/L (137-145); TOTAL PROTEIN 7.9 gm/dL (6.4-8.2)
[2020-07-18 06:58] LABS: GLUCOSE 414 mg/dL (74-106); TROPONIN-I 0.014 ng/mL (0.000-0.035)
[2020-07-18 07:04] LABS: BAND 2 % (0-10); BASOPHIL 5 % (0-2); EOSINOPHIL 3 % (0-4); LYMPHOCYTE 36 % (20.0-51.0); METAMYELOCYTE 2 % (0-0); NEUTROPHILS 43 % (42.0-75.2); PLATELET ESTIMATE NORMAL (NORMAL)
[2020-07-18 07:05] LABS: HYPOCHROMIA 2+
[2020-07-18 07:08] LABS: C-REACTIVE PROTEIN < 0.5 mg/dL (0.0-0.9); LIPASE 182 U/L (23-300)
[2020-07-18 07:10] LABS: COLLECTION METHOD CLEAN CATCH
[2020-07-18 07:20] LABS: PH 6 (5-8); SQUAMOUS EPITHELIAL 0-2 /hpf; URINE APPEARANCE Hazy; URINE BACTERIA Rare /hpf; URINE BILIRUBIN Negative (NEGATIVE); URINE BLOOD Negative (NEGATIVE); URINE COLOR Yellow; URINE GLUCOSE 3+ (NEGATIVE); URINE KETONE Negative (NEGATIVE); URINE LEUKOCYTE ESTERASE Negative (NEGATIVE); URINE NITRATE Negative (NEGATIVE); URINE PROTEIN(semi-quant) 2+ (NEGATIVE); URINE UROBILINOGEN Negative (NEGATIVE)
[2020-07-18 08:24] LABS: ARTERIAL BLD GAS O2 SATURATION 93.3 % (92-100); ARTERIAL BLD GAS TCO2 CT 18.4; ARTERIAL BLOOD GAS BASE EXCESS -7.4 (-2-2); ARTERIAL BLOOD GAS HCO3 17.4 meq/L (22-26); ARTERIAL BLOOD GAS PCO2 33.4 mmHg (35-45); ARTERIAL BLOOD GAS PO2 66.7 mmHg (80-100); ARTERIAL BLOOD GAS pH 7.33 (7.35-7.45)
[2020-07-18] MEDS ORDERED: GLUCOPHAGE500 MG/TAB PO (10:46)
[2020-07-18] MEDS ORDERED: MOBIC15 MG PO (10:46)
[2020-07-18] MEDS ORDERED: NYSTATIN100000 U/1 TOP (10:47)
[2020-07-18] MEDS ORDERED: LIPITOR 40MG TA40 MG PO (10:48)
[2020-07-18] MEDS ORDERED: AMARYL 2MG T2 MG/TAB PO (10:48)
[2020-07-18 12:19] LABS: ARTERIAL BLD GAS TCO2 CT 20.9; ARTERIAL BLOOD GAS BASE EXCESS -3.9 (-2-2); ARTERIAL BLOOD GAS HCO3 19.9 meq/L (22-26); ARTERIAL BLOOD GAS PCO2 32.7 mmHg (35-45); ARTERIAL BLOOD GAS PO2 75.9 mmHg (80-100)
[2020-07-18] MEDS ORDERED: TAPAZOLE10 MG PO (15:23)
[2020-07-18 16:28] LABS: CREATININE, serum 0.55 (0.52-1.25); POTASSIUM 3.9 mmol/L (3.4-5.0)
--- NOTE | 2020-07-18 16:39 | NUR ---
Report given to DUKE Spivey. PT moved room 316 via wheechair. PT was able to move to and from wheelchair with SBA. Care handed over to Allyssa at 1624.
--- NOTE | 2020-07-18 17:37 | NUR ---
Patient transferred up from the ICU for pnuemonia. Report recieved from the DUKE Nelson. Upon initial assessment, patient's lungs were clear to auscultation, dry cough present, normal S1 and S2 sounds present, radial and pedal pulses present in all four quadrants, patient A&O. No skin issues noted. Respiratory virus panel collected. VSS. Allergies and pharmacy reviewed. Patient denies any pain, SOA, or futher needs at this time. Will continue to monitor. Son at the bedside. Call light in reach.
--- NOTE | 2020-07-18 18:21 | NUR ---
Cas from lab called with a TSH level of <0.015 mIU/L. Information relayed to Megan. ALCARAZ
[2020-07-19 00:17] VITALS: BP 122/63; PULSE 100; TEMP 97.9
[2020-07-19 04:58] VITALS: BP 121/56; PULSE 101; TEMP 97.8
--- NOTE | 2020-07-19 05:31 | NUR ---
PT SLEPT THROUGH OUT NIGHT, 02 CURRENTLY ROOM AIR, PT SATURATING OVER 92 PERCENT, PT DENIES SOB, PAIN, N/V/D. INSULIN ADMINISTERED ORDERED. CALL LIGHT WITHIN REACH.
[2020-07-19 06:24] LABS: MEAN CORPUSCULAR HGB CONC 33 g/dl (33.0-37.0); MEAN PLATELET VOLUME 10.1 fl (7.4-10.4); RED BLOOD COUNT 3.79 M/mm3 (4.10-5.30)
--- NOTE | 2020-07-19 06:30 | NUR ---
Patient resting in bed at this time. Does not C/O any pain, SOA, or futher needs at this time. Will continue to monitor. Call light in reach.
[2020-07-19 06:33] LABS: HEMATOCRIT 35.8 % (37.0-47.0); HEMOGLOBIN 11.7 g/dl (12.5-16.0); MEAN CORPUSCULAR HEMOGLOBIN 31 pg (27.0-31.0)
[2020-07-19 06:34] LABS: MEAN CELL VOLUME 95 fl (80.0-100.0); PLATELET COUNT 173 K/mm3 (130-400)
[2020-07-19 06:43] LABS: CALCIUM 8.9 mg/dL (8.4-10.2); CREATININE, serum 0.56 (0.52-1.25); POTASSIUM 3.8 mmol/L (3.4-5.0)
[2020-07-19 08:02] VITALS: BP 121/64; PULSE 111; TEMP 98.2
--- NOTE | 2020-07-19 08:57 | NUR ---
Scheduled medication given, shift assessment preformed. VSS. Upon initiation of the azythromycin infusion, patient reported itching and burning around the IV site. Infusion stopped and line flushed. DOT Benavides, notified. Benadryl ordered and administered. Patient does not report any SOA, throat tigthness, or N/V. Poantonio notified. PRN [place] given for neck and back pain rated a 4/10. Decscribes it as aching and aggrivated by lying in the bed. Will continue to monitor. Call light in reach.
--- NOTE | 2020-07-19 10:01 | NUR ---
Initial visit; Patient thanked Leasing Agent for looking in on her and introduced her mother. Leasing Agent offered them both God's blessings.
[2020-07-19 11:42] VITALS: BP 108/56; PULSE 98; TEMP 97.3
--- NOTE | 2020-07-19 12:58 | NUR ---
Infantry Unit Leader met with patient to discuss discharge planning. 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 Patient sees Dr. Briggs for primary care and obtains medications from [facility] with no difficulties. Patient does not use any DME at this time and is independent with ADLS. Patient isn't sure if she's completed DPOA-HC before but was interested in the form. SW provided. Patient is not and has two children: Nolan (ph#[phone]) and Dacia. Patient plans to return home upon discharge. Discharge Plan: Home
[2020-07-19 15:37] VITALS: BP 105/61; PULSE 87; TEMP 98.3
--- NOTE | 2020-07-19 18:18 | NUR ---
Patient has had an ok day. Patient continues to be on antibiotics for pnuemonia. PRN tylenol given for back and neck pain rated a 4/10. Describes it as an aching pain that is aggravated by lying in bed. Patient has been ambulating through the halls and states that this has helped with the pain. Patient is currently sitting in her chair eating dinner. Denies any further pain, discomfort, SOA, or further needs at this time. Will continue to monitor. Call light in reach. VSS.
[2020-07-19 20:12] VITALS: BP 130/62; PULSE 96; TEMP 97.9
--- NOTE | 2020-07-19 20:45 | NUR ---
Initial shift assessment done- states back/neck pain 05/15--would like a [place] at this time, given as ordered,Tele on, Up as tolerated- steady on feet, HS snack given- no other requests. Did ask about oral Zithromax antibiotic-in APR to give tomorrow night-- will clarify with Yuliet CHRIS
[2020-07-20 00:23] VITALS: BP 109/59; PULSE 57; TEMP 97.6
[2020-07-20 04:22] VITALS: BP 120/64; PULSE 92; TEMP 98.1
--- NOTE | 2020-07-20 06:03 | NUR ---
Quiet night ,VSS, no requests.
[2020-07-20 06:35] LABS: BASO # 0.1 (0.0-0.2); BASO % 0.6 % (0.0-2.0); EOS # 0.3 (0.0-0.7); EOS % 2.9 % (0-4.0); GRAN # 7.6 (1.4-6.5); HEMOGLOBIN 11.8 g/dl (12.5-16.0); LYMPH # 2.2 (1.2-3.4); LYMPH % 20.2 % (20.0-51.0); MEAN CELL VOLUME 94 fl (80.0-100.0); MEAN CORPUSCULAR HEMOGLOBIN 31 pg (27.0-31.0); MEAN CORPUSCULAR HGB CONC 33 g/dl (33.0-37.0); MONO # 0.9 (0.1-0.6); MONO % 7.7 % (1.7-9.3); PLATELET COUNT 168 K/mm3 (130-400); RED BLOOD COUNT 3.82 M/mm3 (4.10-5.30)
[2020-07-20 06:44] LABS: CALCIUM 8.9 mg/dL (8.4-10.2); CREATININE, serum 0.48 (0.52-1.25); MAGNESIUM 1.9 mg/dL (1.6-2.3); POTASSIUM 4.2 mmol/L (3.4-5.0)
[2020-07-20 07:26] VITALS: BP 114/53; PULSE 99; TEMP 97.5
--- NOTE | 2020-07-20 08:00 | NUR ---
Patient sitting up in bed watching TV. Reporting pain in neck, back and chest, but did not request pain medication. IV CDI. VSS. Non productive cough. Call light within reach.
[2020-07-20 11:07] VITALS: BP 133/64; PULSE 99; TEMP 97.6
--- NOTE | 2020-07-20 12:41 | NUR ---
Patient sitting up in the recliner working on eatting lunch. IV CDI. Denies pain and discomfort. No further needs expressed from the patient. Call light within reach
[2020-07-20 16:10] VITALS: BP 127/60; PULSE 99; TEMP 98
[2020-07-20 18:58] VITALS: BP 114/50; PULSE 94; TEMP 98.1
--- NOTE | 2020-07-20 19:24 | NUR ---
Received report from Breana. Patient aware of NPO by midnight. She complains of pain on her left shoulder and chest. Pain score of 4/10. [place] given.
--- NOTE | 2020-07-20 19:36 | NUR ---
REPORT GIVEN TO DUKE VILLAREAL
[2020-07-21] VITALS (10 sets, daily range): BP systolic 99–119; BP diastolic 45–72; PULSE 56–86; TEMP 97.5–98
--- NOTE | 2020-07-21 06:14 | NUR ---
Patient had uneventful night. Had complains of pain early this shift only. She was asleep most of the night. Maintained on NPO.
[2020-07-21 08:44] LABS: HEMATOCRIT 37.6 % (37.0-47.0); HEMOGLOBIN 12.5 g/dl (12.5-16.0); MEAN CELL VOLUME 94 fl (80.0-100.0); MEAN CORPUSCULAR HEMOGLOBIN 31 pg (27.0-31.0); MEAN CORPUSCULAR HGB CONC 33 g/dl (33.0-37.0); MEAN PLATELET VOLUME 10.1 fl (7.4-10.4); PLATELET COUNT 169 K/mm3 (130-400); RED BLOOD COUNT 4.01 M/mm3 (4.10-5.30); REDCELL DISTRIBUTION WIDTH-CV 11.9 % (11.5-14.5)
[2020-07-21 08:53] LABS: CALCIUM 9.3 mg/dL (8.4-10.2); CREATININE, serum 0.52 (0.52-1.25); POTASSIUM 4.7 mmol/L (3.4-5.0)
--- NOTE | 2020-07-21 10:57 | NUR ---
Assessment completed, alert/oriented, vital sign stable, denies pain or discomfort, heart RRR/dsital pulses aer palapble, SR on tele, lungs CTA/ diminished bases right more than left, she reports her breathing is much improved though overall, she is on room air, scheduled for cardiac cath later today, consent signed/ NPO, denies other needs at this time
[2020-07-21] MEDS ORDERED: LIPITOR 80MG80 MG PO (16:18)
[2020-07-21] MEDS ORDERED: TOPROL XL 25MG25 MG PO (16:18)
[2020-07-21] MEDS ORDERED: ASPIRIN 81M81 MG/TA2 PO (16:18)
[2020-07-21] MEDS ORDERED: LASIX 40MG TABL40 MG PO (16:19)
--- NOTE | 2020-07-21 17:40 | NUR ---
Assessment completed, alert/oriented, vital signs stable, reports arthritis pain in joints and requests a [place], right radial access site is C/D/I, TR band inflated at 1505 with 12cc air, will continue to monitor
--- NOTE | 2020-07-21 17:54 | NUR ---
Patient continues to do well post heart cath, VSS, denies pain, started to deflate TR band without any complications
--- NOTE | 2020-07-21 18:23 | NUR ---
TR band deflated, no signs bleeding or hematoma
--- NOTE | 2020-07-21 20:00 | NUR ---
Discharge paperwork/education has been completed at end of dayshift. Patient's telemetry, TR band and IV's are removed at this time. Patient is escorted out of building by nurse's aid.
== END 2020-07-21 20:00 | disposition home or self-care (01) | DRG 871 ==
LOC: COL.ER 06:21 → ICU 09:46 → MEDICAL 09:46
PROVIDERS: Emergency Medicine; Internal Medicine; Physician Assistant; ADMIT Hospitalist
PROC: 5A09457 Assistance with Respiratory Ventilation, 24-96 Consecutive Hours, Continuous Positive Airway Pressure (ICD-10-PCS; 2020-07-18)
PROC: 4A023N7 Measurement of Cardiac Sampling and Pressure, Left Heart, Percutaneous Approach (ICD-10-PCS; principal; 2020-07-21)
PROC: B2111ZZ Fluoroscopy of Multiple Coronary Arteries using Low Osmolar Contrast (ICD-10-PCS; 2020-07-21)
DX: A41.9 Sepsis, unspecified organism (principal); J18.9 Pneumonia, unspecified organism; J96.01 Acute respiratory failure with hypoxia; I50.21 Acute systolic (congestive) heart failure; E87.2 Acidosis; I42.9 Cardiomyopathy, unspecified; J81.1 Chronic pulmonary edema; E11.9 Type 2 diabetes mellitus without complications; Z20.822 Contact with and (suspected) exposure to COVID-19; E05.90 Thyrotoxicosis, unspecified without thyrotoxic crisis or storm; I08.1 Rheumatic disorders of both mitral and tricuspid valves; I25.10 Atherosclerotic heart disease of native coronary artery without angina pectoris; R00.0 Tachycardia, unspecified; E78.5 Hyperlipidemia, unspecified; F17.210 Nicotine dependence, cigarettes, uncomplicated; Z79.891 Long term (current) use of opiate analgesic; Z79.84 Long term (current) use of oral hypoglycemic drugs
CPT/HCPCS: 99223-AI; 99233-AI; C1769; J0456; J0696; J1200; J1644; J1650; J1815; J1940; J2250; J3010; J7030; J7050; Q9967

== ENCOUNTER 2021-08-03 22:00 | Inpatient (IN) | payer BC ==
[~2021-08-03] VITALS: Ht 170.2 cm; Wt 89.3 kg
[~2021-08-03 22:00] MED LIST changes: +AMARYL 2MG T2 MG/TAB PO; +ASPIRIN 81M81 MG/TA2 PO; +LASIX 40MG TABL40 MG PO; +LIPITOR 40MG TA40 MG PO; +LIPITOR 80MG80 MG PO; +MOBIC15 MG PO; +NYSTATIN100000 U/1 TOP; +TOPROL XL 25MG25 MG PO
[2021-08-03 22:29] LABS: MEAN CELL VOLUME 97 fl (80.0-100.0); MEAN CORPUSCULAR HEMOGLOBIN 30 pg (27-31); MEAN CORPUSCULAR HGB CONC 31 g/dl (33.0-37.0); MEAN PLATELET VOLUME 9.8 fl (7.4-10.4); PLATELET COUNT 198 K/mm3 (130-400); RED BLOOD COUNT 3.64 M/mm3 (4.10-5.30); REDCELL DISTRIBUTION WIDTH-CV 13.9 % (11.5-14.5)
[2021-08-03 22:30] LABS: HEMATOCRIT 35.2 % (37.0-47.0)
[2021-08-03 22:43] LABS: BAND 1 % (0-10); HYPOCHROMIA 2+; LYMPHOCYTE 5 % (20.0-51.0); NEUTROPHILS 90 % (42.0-75.2); PLATELET ESTIMATE NORMAL (NORMAL)
[2021-08-03 22:46] LABS: ALANINE AMINOTRANSFERASE 18 U/L (0-55); ALKALINE PHOSPHATASE 94 U/L (40-150); ANION GAP 14 mmol/L (7-16); AST,SGOT 24 U/L (5-34); BILIRUBIN,TOTAL 0.9 mg/dL (0.2-1.2); BLOOD UREA NITROGEN 9 mg/dL (10-20); CALCIUM 8.9 mg/dL (8.4-10.2); CARBON DIOXIDE 19 mmol/L (22-29); CHLORIDE 102 mmol/L (98-107); CREATININE, serum 0.91 mg/dL (0.57-1.11); GLUCOSE 336 mg/dL (70-99); SODIUM 135 mmol/L (136-145); TOTAL PROTEIN 7.9 gm/dL (6.2-8.1)
[2021-08-03 22:48] LABS: C-REACTIVE PROTEIN 32.98 mg/dL (0.00-0.50); TROPONIN-I < 0.010 ng/mL (0.00-0.033)
[2021-08-03] MEDS ORDERED: TOPROL XL 25MG25 MG PO (23:45)
[2021-08-03] MEDS ORDERED: WELLBUTRIN 75MG75 MG PO (23:46)
[2021-08-03] MEDS ORDERED: OZEMPIC0.25 MG/0. INJ (23:48)
[2021-08-04] MEDS ORDERED: PAXLOVID CO-PA1 EACH PO (00:14)
[2021-08-04] MEDS ORDERED: ZOFRAN 4MG T4 MG/TAB PO (00:14)
[2021-08-04] MEDS ORDERED: ENTRESTO 24 MG1 EACH PO (00:15)
[2021-08-04] MEDS ORDERED: ASPIRIN 81M81 MG/TA2 PO (00:15)
[2021-08-04] MEDS ORDERED: GLUCOPHAGE XR500 M1 PO (00:15)
[2021-08-04] MEDS ORDERED: AMARYL 2MG T2 MG/TAB PO (00:15)
[2021-08-04] MEDS ORDERED: MOBIC15 MG PO (00:16)
[2021-08-04] MEDS ORDERED: WELLBUTRIN XL150 MG PO (00:16)
[2021-08-04] MEDS ORDERED: NORCO 325 MG-51 TAB PO (00:16)
[2021-08-04] MEDS ORDERED: TAPAZOLE10 MG PO (00:16)
[2021-08-04] MEDS ORDERED: TOPROL XL 25MG25 MG PO ×2 (00:17)
[2021-08-04] MEDS ORDERED: LIPITOR 80MG80 MG PO (00:17)
[2021-08-04] MEDS ORDERED: OZEMPIC0.25 MG/0. SQ (00:18)
[2021-08-04] MEDS ORDERED: FARXIGA10 PO (00:18)
[2021-08-04] MEDS ORDERED: LASIX 40MG TABL40 MG PO (00:18)
[2021-08-04 03:02] VITALS: BP 103/53; PULSE 94; TEMP 98.1
--- NOTE | 2021-08-04 05:53 | NUR ---
55 yo female admitted for further care and management of severe sepsis likely secondary to L lower extremity cellulitis (patient is also Covid 19 positive). ht 170.2 cm wt 86.4 kg SCr 0.91 with estimated CrCl >60 ml/min half life 14 hours Plan: Will give an initial loading dose of vancomycin 1750 mg x1 (20.3 mg/kg); followed by a maintenance regimen of vancomycin 1000 mg q12h to target a goal trough of 10-15 mcg/ml. Will follow patient's renal function, micro data, and vancomycin levels as indicated to assess for any necessary changes to regimen. Thank you for this dosing consult.
[2021-08-04 06:45] LABS: MEAN CELL VOLUME 97 fl (80.0-100.0); MEAN CORPUSCULAR HGB CONC 32 g/dl (33.0-37.0); PLATELET COUNT 172 K/mm3 (130-400); REDCELL DISTRIBUTION WIDTH-CV 13.9 % (11.5-14.5)
[2021-08-04 06:55] LABS: HEMATOCRIT 30.2 % (37.0-47.0); HEMOGLOBIN 9.5 g/dl (12.5-16.0); MEAN CORPUSCULAR HEMOGLOBIN 31 pg (27-31)
[2021-08-04 07:01] LABS: CALCIUM 7.8 mg/dL (8.4-10.2); CREATININE, serum 0.76 mg/dL (0.57-1.11); POTASSIUM 3.5 mmol/L (3.5-4.5)
[2021-08-04 07:35] VITALS: BP 102/47; PULSE 93; TEMP 98
[2021-08-04 07:58] LABS: BAND 13 % (0-10); LYMPHOCYTE 4 % (20.0-51.0); METAMYELOCYTE 1 % (0-0); NEUTROPHILS 78 % (42.0-75.2); PLATELET ESTIMATE NORMAL (NORMAL)
--- NOTE | 2021-08-04 09:11 | NUR ---
The patient is COVID positive. SW contacted the patient to discuss discharge plan. 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 She reports independence with ADLs and does not have any DME. The patient's PCP is Dr. Gemini Briggs and she receives her medications from [facility]. The patient has wounds and she states that Dr. Briggs has been managing them. The patient does not have a DPOA-HC, but she was interested in obtaining a form when she goes home. NENITA placed a form on the patient's chart. The patient states that she is not and has two children: Nolan (ph#[phone]) and Dacia. The patient plans to return home upon discharge. *Discharge plan: home*
--- NOTE | 2021-08-04 11:14 | NUR ---
PATIENT RESTING IN BED. COMPLAINTS OF PAIN ON PALPATION OF LEFT FOOT. NO COMPLAINTS OF CHILLS, N/V/D. FLUIDS CURRENTLY RUNNING AT 125/HR. PATIENT HAS FINE CRACKLES IN MARLEY LUNG BASES. SKIN INTACT OTHER THAN LEFT GREAT TOE PUSTULE AND INFLAMMATION. DIET ORDER CONFIRMED FROM PROVIDER AND PLACED. NO QUESTIONS FROM PATIENT AT THIS TIME.
[2021-08-04 12:01] VITALS: BP 94/42; PULSE 96; TEMP 98.1
[2021-08-04 13:27] VITALS: BP 82/43
[2021-08-04 17:06] VITALS: BP 121/55; PULSE 108; TEMP 98.7
[2021-08-04 20:01] VITALS: BP 142/66; PULSE 107; TEMP 98.7
--- NOTE | 2021-08-04 20:22 | NUR ---
PATIENT RESTING IN BED. NO COMPLAINTS OF PAIN. PICC LINE PLACED. SWELLING AND BLISTERING IN RIGHT FOOT INCREASED OVER COURSE OF THE DAY. PATIENT HAD EPISODE OF EMISIS DURING PICC LINE PLACEMENT. REMAINED AFIBRILE. MOMENTS OF HYPOTENSION WITH FLUIDS RUNNING. CT ORDERED AT SHIFT CHANGE.
== END 2021-08-05 00:15 | disposition short-term general hospital (02) | DRG 871 ==
LOC: COL.ER 22:00 → MEDICAL 08-04 00:38
PROVIDERS: Emergency Medicine; Nurse Practitioner Family; ADMIT Internal Medicine
PROC: 02HV33Z Insertion of Infusion Device into Superior Vena Cava, Percutaneous Approach (ICD-10-PCS; principal; 2021-08-04)
DX: A41.9 Sepsis, unspecified organism (principal); M72.6 Necrotizing fasciitis; L03.115 Cellulitis of right lower limb; I50.22 Chronic systolic (congestive) heart failure; E87.2 Acidosis; E87.1 Hypo-osmolality and hyponatremia; Z20.822 Contact with and (suspected) exposure to COVID-19; L97.519 Non-pressure chronic ulcer of other part of right foot with unspecified severity; E78.5 Hyperlipidemia, unspecified; F17.210 Nicotine dependence, cigarettes, uncomplicated; D64.9 Anemia, unspecified; I25.10 Atherosclerotic heart disease of native coronary artery without angina pectoris; I95.9 Hypotension, unspecified; E05.90 Thyrotoxicosis, unspecified without thyrotoxic crisis or storm; E11.65 Type 2 diabetes mellitus with hyperglycemia; Z86.16 Personal history of COVID-19; Z79.84 Long term (current) use of oral hypoglycemic drugs; Z79.82 Long term (current) use of aspirin
CPT/HCPCS: 99233-AI; A9270; C1751; J0696; J1650; J1815; J2185; J2543; J2550; J3370; J7030; J7050; Q9967

== ENCOUNTER 2021-08-28 12:06 | Emergency (ER) | payer BC ==
[~2021-08-28] VITALS: Ht 167.6 cm; Wt 90.9 kg
[~2021-08-28 12:06] MED LIST changes: +ENTRESTO 24 MG1 EACH PO; +FARXIGA10 PO; +GLUCOPHAGE XR500 M1 PO; +OZEMPIC0.25 MG/0. INJ; +OZEMPIC0.25 MG/0. SQ; +PAXLOVID CO-PA1 EACH PO; +WELLBUTRIN 75MG75 MG PO; +WELLBUTRIN XL150 MG PO; +ZOFRAN 4MG T4 MG/TAB PO
[2021-08-28 12:36] VITALS: TEMP 98.1
[2021-08-28 13:45] VITALS: BP 105/66; PULSE 96
== END 2021-08-28 13:46 | disposition home or self-care (01) ==
LOC: COL.ER 12:06
DX: Z45.2 Encounter for adjustment and management of vascular access device (principal); F17.210 Nicotine dependence, cigarettes, uncomplicated

== ENCOUNTER 2023-03-02 20:56 | Emergency (ER) | payer BC ==
[~2023-03-02] VITALS: Ht 170.2 cm; Wt 75.9 kg
[2023-03-02 21:09] VITALS: TEMP 97.5
[2023-03-02 21:57] LABS: BASO # 0.1 K/mm3 (0.0-0.2); BASO % 0.7 % (0.0-2.0); EOS # 0.2 K/mm3 (0.0-0.7); EOS % 1.6 % (0.0-4.0); GRAN # 8.3 K/mm3 (1.4-6.5); GRAN % 68.3 % (42.2-75.2); HEMOGLOBIN 13.3 g/dl (12.5-16.0); LYMPH # 2.6 K/mm3 (1.2-3.4); LYMPH % 21.3 % (20.0-51.0); MEAN CELL VOLUME 89 fl (80.0-100.0); MEAN CORPUSCULAR HEMOGLOBIN 30 pg (27-31); MEAN CORPUSCULAR HGB CONC 33 g/dl (33.0-37.0); MEAN PLATELET VOLUME 9.5 fl (7.4-10.4); MONO % 7.8 % (1.7-9.3); PLATELET COUNT 298 K/mm3 (130-400); RED BLOOD COUNT 4.48 M/mm3 (4.10-5.30); REDCELL DISTRIBUTION WIDTH-CV 14.5 % (11.5-14.5)
[2023-03-02 22:17] LABS: ALBUMIN 3.8 gm/dL (3.5-5.0); BILIRUBIN,TOTAL 0.2 mg/dL (0.2-1.2); C-REACTIVE PROTEIN 1.53 mg/dL (0.00-0.50); CALCIUM 9.6 mg/dL (8.4-10.2); CREATININE, serum 0.85 mg/dL (0.57-1.11); POTASSIUM 3.5 mmol/L (3.5-4.5); TOTAL PROTEIN 7.7 gm/dL (6.2-8.1)
[2023-03-02] MEDS ORDERED: cefTRIAXone 1 G in Water For Injection,Sterile 10 ML IV ONE (23:15)
[2023-03-02] MEDS ORDERED: Sulfamethoxazole/Trimethoprim 800-160 MG TAB PO ONE (23:15)
[2023-03-02] MEDS ORDERED: BACTRIM DS 8001 TAB PO (23:28)
[2023-03-02] MEDS ORDERED: CEPHALEXIN500 M1 PO (23:28)
[2023-03-03 00:01] VITALS: BP 112/64; PULSE 84
== END 2023-03-03 00:01 | disposition home or self-care (01) ==
LOC: COL.ER 20:56
PROVIDERS: Nurse Practitioner
DX: L03.116 Cellulitis of left lower limb (principal); E11.42 Type 2 diabetes mellitus with diabetic polyneuropathy; F17.210 Nicotine dependence, cigarettes, uncomplicated
CPT/HCPCS: J0696

== ENCOUNTER 2023-11-13 10:12 | Inpatient (IN) | payer BC ==
[~2023-11-13] VITALS: Ht 170.2 cm; Wt 76.5 kg
[~2023-11-13 10:12] MED LIST changes: +BACTRIM DS 8001 TAB PO; -OZEMPIC0.25 MG/0. SQ; +OZEMPIC0.25 MG/02 SQ
--- NOTE | 2023-11-13 14:45 | NUR ---
PT ARRIVED BY POV WITH SON DRIVING. PT TRANSPORTED TO FLOOR VIA W/C. PT BELONGINGS IN ROOM. INTAKE COMPLETE.
[2023-11-13] MEDS ORDERED: Polyethylene Glycol 3350 17 GM PDS PO PRN ×2 (15:15→15:45)
[2023-11-13] MEDS ORDERED: Acetaminophen 325 MG TAB PO PRN ×2 (15:15→15:45)
[2023-11-13] MEDS ORDERED: Docusate Sodium 100 MG CAP PO PRN ×2 (15:15→15:45)
[2023-11-13] MEDS ORDERED: Sennosides/Docusate 8.6-50 MG TAB PO PRN (15:15)
[2023-11-13] MEDS ORDERED: Naloxone 0.4 MG/ML VIAL IV PRN (15:15)
[2023-11-13] MEDS ORDERED: AMOXICILLIN 8751 TAB PO (15:29)
[2023-11-13] MEDS ORDERED: DOXYCYCLINE HY100 MG PO (15:30)
[2023-11-13] MEDS ORDERED: LEXAPRO 10MG10 MG PO (15:33)
[2023-11-13] MEDS ORDERED: NEURONTIN100 MG/CAP PO (15:34)
[2023-11-13] MEDS ORDERED: CRESTOR40 MG PO (15:39)
[2023-11-13] MEDS ORDERED: ROXICODONE 55 MG/TAB PO (15:40)
[2023-11-13] MEDS ORDERED: Bisacodyl 5 MG TAB PO PRN (15:45)
[2023-11-13] MEDS ORDERED: oxyCODONE 5 MG TAB PO PRN (16:00)
[2023-11-13] MEDS ORDERED: Dextrose 50% Water 25 GM/50 ML SYRINGE IV PRN (16:15)
[2023-11-13] MEDS ORDERED: Glucagon 1 MG VIAL IM PRN (16:15)
[2023-11-13] MEDS ORDERED: Dextrose (Glucose) 15 GM (4 x 3.75 GM) Chewable TABLET PACK PO PRN (16:15)
[2023-11-13 16:16] VITALS: BP 109/62; PULSE 75; TEMP 97.8
[2023-11-13] MEDS ORDERED: Insulin Lispro (HumaLOG) SQ SCH (17:00)
[2023-11-13] MEDS ORDERED: Amoxicillin/Clavulanate K+ 875/125 MG TAB PO SCH (17:00)
[2023-11-13 17:06] VITALS: BP_SYST 109
[2023-11-13 17:38] VITALS: BP 109/62; PULSE 75; TEMP 97.8
[2023-11-13 20:00] VITALS: BP_SYST 109
[2023-11-13] MEDS ORDERED: Gabapentin 100 MG CAP PO SCH (21:00)
[2023-11-13] MEDS ORDERED: Atorvastatin 80 MG TAB PO SCH (21:00)
[2023-11-13] MEDS ORDERED: Insulin Glargine-ygfn (Lantus) SQ SCH (21:00)
[2023-11-13] MEDS ORDERED: Doxycycline Monohydrate 100 MG CAP PO SCH (21:00)
--- NOTE | 2023-11-13 21:17 | NUR ---
UPON SHIFT ASSESSMENT, BEULAH WAS AWAKE AND SITTING ON BEDSIDE WITH BLLE IN DEPENDENT POSITION. 2+ EDEMA NOTED AND ASKED PATIENT IF SHE WOULD LIKE TO SIT IN RECLINER WITH EXTREMITIES ELEVATED, SHE DECLINED. CHEEKS WERE NOTED TO BE FLUSHED AND PATIENT STATED THAT THIS IS BASELINE FOR HER. DENIES SOA,ITCHING OR FEELING HOT. PATIENT VOICE RASPY AND FINE CRACKLES THAT CLEARED WITH COUGH AUSCULTATED IN UPPER LOBES. PATIENT STATES BEFORE LEAVING , SHE TESTED NEGATIVE FOR COVID DRESSINGS TO RT HEEL CDI AND DRESSING TO LBKA CDI WELL. NO WOUND CARE ORDERS IN PLACE YET. TO NOTE, PATIENT STATES SHE REQUIRES MEDHONEY DRESSING FOR RT HEEL. BG 222 AND REQUIRED 4 UNITS MID SLIDING SCALE INSULIN. SCHEDULED LANTUS GIVEN WELL. PATIENT STATED THEY WERE HUNGRY AND THIS NURSE OFFERED SUGAR FREE FOOD OPTIONS IN WHICH SHE DECLINED. PEANUT BUTTER AND 1 AKI CRACKER GIVEN. PATIENT ASKED FOR FRUIT JUICE AND EDUCATION WAS PROVIDED ON HYPERGYCEMIA AND PATIENT AGREEABLE TO WATER FOR BEVERAGE. CALL LIGHT WITHIN REACH AND BED ALARM ON.
--- NOTE | 2023-11-14 00:48 | NUR ---
PATIENT C/O /10 SHARP PAIN IN SURGICAL SITE LT BKA. PRN OXYCODONE, TYLENOL AND ELEVATION OF EXTREMITY.
[2023-11-14 01:00] VITALS: BP_SYST 109
--- NOTE | 2023-11-14 01:47 | NUR ---
PATIENT RESTING SUPINE WITH EYES CLOSED. NO SIGNS OF DISTRESS. DRESSINGS TO SURGICAL SITE AND WOUND REMAIN CDI.
[2023-11-14 01:48] VITALS: BP 110/70; PULSE 109
[2023-11-14 05:53] VITALS: BP 126/71; PULSE 67; TEMP 97.4
[2023-11-14 07:02] VITALS: BP_SYST 126
[2023-11-14] MEDS ORDERED: Escitalopram 10 MG TAB PO SCH (09:00)
[2023-11-14] MEDS ORDERED: methIMAzole 5 MG TAB PO SCH (09:00)
[2023-11-14] MEDS ORDERED: buPROPion XL (24-HR) 150 MG TAB PO SCH (09:00)
--- NOTE | 2023-11-14 10:22 | NUR ---
PT UP TO SOB FOR BREAKFAST. WORKING WITH THERAPIES THIS AM. PT IS A/O X4, AM MEDS GIVEN. PO PAIN MEDS FOR PAIN 7/10 REPORTED. LEFT LEG WTIH IMMOBILIZER INPLACE. DRESSING AND MEAGAN WRAP TO RIGHT HEEL. VSS.
--- NOTE | 2023-11-14 11:25 | NUR ---
DRESSING CHANGE COMPLETE TO R HEEL DIABETIC ULCER, XEROFORM, 4X4, ABD KERLIX AND MEAGAN WRAP. PT TOLERATED WELL.
--- NOTE | 2023-11-14 13:25 | NUR ---
NENITA and NENITA Odom met with patient to complete initial assessment for discharge planning. 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 She also has a home in [place] that she shares with her son Nolan Denson ([phone]). Patient states that she plans to return to the [facility] at discharge. Patient sees Dr. Gemini Briggs as her PCP and uses [facility] pharmacy. Patient states she has a walker, wheelchair, cane, shower chair and grab bar at her home that "was left by a resident that ." Patient reports that she is covered by [facility] insurance. Patient reports that she used [facility] in the past and would like referral to them again. SW discuss need to be home bound for HH services. Patient states that her son drives her to appointments. SW provided with Medicare.gov list of HH options. Discussed potential for discharge on 11/20 which patient is agreeable. Discharge plan: Home ([facility]) with HH
[2023-11-14] MEDS ORDERED: Gabapentin 100 MG CAP PO SCH (14:00)
[2023-11-14] MEDS ORDERED: Albuterol/Ipratropium 3 MG-0.5 MG/3 ML Neb Soln IH PRN (15:45)
[2023-11-14 18:00] VITALS: BP 127/78; PULSE 79; TEMP 98.1
[2023-11-14] MEDS ORDERED: Albuterol/Ipratropium 3 MG-0.5 MG/3 ML Neb Soln IH SCH (19:00)
--- NOTE | 2023-11-14 20:00 | NUR ---
UPON SHIFT ASSESSMENT, BEULAH WAS IN BED ON LAPTOP. SHE IS A&O X 4 AND PLEASANT. SHE CONTINUES TO INQUIRE ABOUT INCREASING DOSEAGE OF OXYCODONE FROM 5MG TO 15MG SHE STATES THIS IS WHAT SHE IS GETTING FROM . ADVISED PATIENT TO ASK PHYSICIAN IN MORNING. PATIENT REFUSED GABAPENTIN, STATED IT MADE HER TOO DROWSY, SHE WAS AGREEABLE TO PRN TYLENOL UNITL NEXT DOSE OF OXYCODONE AVAILABLE-RATES PAIN 6/10 AND STATES, "THEY ARE THOSE PHANTOM PAINS." DRESSINGS TO BILATERAL LOWER EXTREMITIES CDI. VS ARE WNL. FINE CRACKLES THAT CLEARED WITH COUGH NOTED, PATIENT DENIES SOA. CALL LIGHT WITHIN REACH, BED ALARM ON.
[2023-11-14 21:00] VITALS: BP_SYST 127
[2023-11-14] MEDS ORDERED: Insulin Glargine-ygfn (Lantus) SQ SCH (21:00)
--- NOTE | 2023-11-15 03:02 | NUR ---
PATIENT RESTING WITH EYES CLOSED, SUPINE. NO SIGNS OF DISTRESS. BILATERAL LOWER EXTREMITY DRESSINGS REMAIN CDI.
[2023-11-15 05:03] VITALS: BP 131/77; PULSE 70; TEMP 97.5
[2023-11-15 06:21] LABS: MEAN CELL VOLUME 94 fl (80.0-100.0); MEAN CORPUSCULAR HGB CONC 32 g/dl (33.0-37.0); PLATELET COUNT 381 K/mm3 (130-400); RED BLOOD COUNT 3.08 M/mm3 (4.10-5.30); REDCELL DISTRIBUTION WIDTH-CV 14.6 % (11.5-14.5)
[2023-11-15 06:23] LABS: HEMATOCRIT 28.9 % (37.0-47.0); HEMOGLOBIN 9.1 g/dl (12.5-16.0); MEAN CORPUSCULAR HEMOGLOBIN 30 pg (27-31)
[2023-11-15 06:37] LABS: CALCIUM 9.2 mg/dL (8.4-10.2); CREATININE, serum 0.81 mg/dL (0.57-1.11); POTASSIUM 4.7 mEq/L (3.5-4.5)
[2023-11-15 07:00] VITALS: BP_SYST 131
[2023-11-15 07:58] LABS: EOSINOPHIL 1 % (0-4); LYMPHOCYTE 26 % (20.0-51.0); NEUTROPHILS 70 % (42.0-75.2)
[2023-11-15 08:00] LABS: PLATELET ESTIMATE NORMAL (NORMAL); STOMATOCYTE 1+
--- NOTE | 2023-11-15 08:00 | NUR ---
Pt a&ox4. VSS. C/o pain 09/14 at this time. PRN pain medication administered. Shift assessment complete and morning medications administered. Pt is up with assist x1, walker, and gait belt. Dressings to L amputation site and R foot CDI. Currently in bed eating breakfast. No further needs at this time. Call light within reach.
[2023-11-15] MEDS ORDERED: oxyCODONE 5 MG TAB PO PRN (08:45)
--- NOTE | 2023-11-15 11:13 | NUR ---
NENITA called patient's son to discuss patient's discharge plan. Son Nolan verified information provided by patient and agrees with her discharge plan being returning to her [facility] residence at discharge with HH. NENITA scheduled family meeting with son to be present with patient on Saturday 11/18 at 0930. IPR Director Mayra notified of scheduled meeting. Discharge plan: Home with HH
[2023-11-15 17:54] VITALS: BP 117/66; PULSE 93; TEMP 97.7
[2023-11-15 20:00] VITALS: BP_SYST 117
--- NOTE | 2023-11-16 01:54 | NUR ---
PT RESTING IN BED. NO COMPLAINTS AT THIS TIME. CALL LIGHT IS WITHIN REACH. ASSESSMENT COMPLETED EARLIER. MEDCICATIONS ADMINISTERED PER EMAR. NO COMPLAINTS AT THIS TIME. BED ALARM IS ON. VSS. DENIES N/V
[2023-11-16 05:33] VITALS: BP 126/74; PULSE 87; TEMP 97.7
[2023-11-16 06:47] VITALS: BP_SYST 126
--- NOTE | 2023-11-16 08:00 | NUR ---
PT SLEEPING IN BED, EASILY AROUSED. SCHEDULED MEDS GIVEN PER eMAR. PRN OXYCODONE GIVEN FOR 7/10 PAIN IN BLE. NO FURTHER CONCERNS AT THIS TIME. CALL LIGHT WITHIN REACH.
--- NOTE | 2023-11-16 13:39 | NUR ---
Admission QIM scores were reviewed by the team. Code of 3 chosen for toileting hygiene was determined by team discussion to be the most usual performance for this patient during the discharge assessment period. Code of 4 chosen for toilet transfers was determined by team discussion to be the most usual performance for this patient during the discharge assessment period. Code of 3 chosen for sit to stand was determined by team discussion to be the most usual performance for this patient during the discharge assessment period. Code of 3 chosen for chair to bed was determined by team discussion to be the most usual performance for this patient during the discharge assessment period.--Mayra Weir,
--- NOTE | 2023-11-16 14:00 | NUR ---
SW met with patient briefly to follow up before the weekend. Patient resting prior to afternoon therapy. Patient agreeable to family meeting on Sunday at 0930. Patient denied any needs at this time. Discharge plan: Home with HH
[2023-11-16] MEDS ORDERED: Gabapentin 100 MG CAP PO SCH (15:00)
--- NOTE | 2023-11-16 15:13 | NUR ---
PRN PAIN MEDS GIVEN FOR 7.5/10 PAIN IN BLE.
[2023-11-16 18:05] VITALS: BP 122/67; PULSE 83; TEMP 97.8
[2023-11-16 20:00] VITALS: BP_SYST 122
--- NOTE | 2023-11-16 23:40 | NUR ---
ASSESSMENT COMPLETED EARLIER. MEDICATIONS ADMINISTERED PER EMAR. NO COMPLAINTS AT THIS TIME. CALL LIGHT IS WITHIN REACH. VSS.
[2023-11-17 06:00] VITALS: BP 125/64; PULSE 84; TEMP 97.5
[2023-11-17 06:50] VITALS: BP_SYST 125
--- NOTE | 2023-11-17 08:33 | NUR ---
PT RESTING IN BED, ALERT AND ORIENTEDX4. ASSESSED PT. RATES PAIN 7/10 IN THE LEFT STUMP AND REQUESTED PAIN MEDS. WANTS TO CHANGE DRESSING ON RIGHT HEEL AFTER THERAPY. BOTH DRESSING CLEAN DRY INTACT. GAVE MORNING MEDS AND 2 UNITS OF INSULIN. NO OTHER COMPLAINTS AT THIS TIME. CALL LIGHT WITHIN REACH.
[2023-11-17 16:59] VITALS: BP 101/63; PULSE 86; TEMP 98.1
[2023-11-17 18:57] VITALS: BP_SYST 101
[2023-11-17] MEDS ORDERED: Insulin Glargine-ygfn (Lantus) SQ SCH (21:00)
--- NOTE | 2023-11-17 22:47 | NUR ---
ASSESSMENT COMPLETED EARLIER. MEDICATIONS ADMINISTERED PER EMAR. VSS. DENIES N/V. NO COMPLAINTS AT THIS TIME. PT IS CURRENTLY IN BED PLAYING COMPUTER GAMES. CALL LIGHT IS WITHIN REACH.
[2023-11-18 05:53] VITALS: BP 129/73; PULSE 73; TEMP 97.6
--- NOTE | 2023-11-18 06:12 | NUR ---
MEDS PASSED. CALL LIGHT WITHIN REACH. NO COMPLAINTS AT THIS TIME.
[2023-11-18 06:54] VITALS: BP_SYST 129
--- NOTE | 2023-11-18 08:00 | NUR ---
PT RESTING IN BED, ALERT AND ORIENTEDX4. ASSESSED PT. RATES PAIN 6/10 AND REQUESTED PAIN PILL. DRESSING ARE CLEAN DRY INTACT. PT USED BED SIDE COMODE AND HAD A LOOSE STOOL. GAVE MORNING MEDS. NO OTHER COMPLAINTS AT THIS TIME. CALL LIGHT WITHIN REACH.
[2023-11-18 16:42] VITALS: BP 134/69; PULSE 72; TEMP 98.1
--- NOTE | 2023-11-18 16:46 | NUR ---
DRESSING CHANGED ON RIGHT HEEL.
--- NOTE | 2023-11-18 18:54 | NUR ---
PT SITTING IN BED. FAMILY AT BEDSIDE. NO COMPLAINTS AT THIS TIME. CALL LIGHT IN REACH.
[2023-11-18 18:57] VITALS: BP_SYST 134
--- NOTE | 2023-11-18 20:54 | NUR ---
ASSESSMENT COMPLETED EARLIER. MEDICATIONS ADMINISTERED PER EMAR. VSS. DENEIS N/V AT THIS TIME. CALL LIGHT IS WITHIN REACH. PERSONAL BELONGINGS IN REACH. PT SON LEFT BEDSIDE. COMPLAINS OF PAIN IN L STUMP AND STATES HAVING SOME PHANTOM PAIN. OXY ADMINISTERED PER EMAR. AMBULATED TO BEDSIDE COMMODE AND URINATED YELLOW URINE. NO OTHER NEEDS AT THIS TIME.
[2023-11-19 06:00] VITALS: BP 131/71; PULSE 76; TEMP 98
[2023-11-19 07:01] VITALS: BP_SYST 131
--- NOTE | 2023-11-19 08:56 | NUR ---
PT UP TO SHOWER WITH OT AFTER EATING BREAKFAST AND TAKING AM MEDS ORDERED. DRESSING TO LEFT LEG CDI WITH OCCLUSIVE MEAGAN WRAP OVER. WOUND. RIGHT FOOT WITH DRESSING OVER HEEL ULCER. PAIN MANAGED WITH PO OXY.
--- NOTE | 2023-11-19 13:27 | NUR ---
NENITA attended family meeting with patient, her son Nolan, [facility] Director Mayra, Dr Rodriguez, PT and OT. Staff discussed patient's progress with therapy and discharge recommendations. Son questioned about walker or crutches for patient to maneuver espana and bathroom at her house at [facility]. Therapy recommended to not use crutches. DME discussed walker, and wheelchair with leg rests. NENITA informed patient that order for wheelchair will be sent today and clinical updates will be sent to [facility] to prepare for Sunday discharge. Patient to purchase a FWW as she has a rollator walker at home and therapy does not recommend this. All questions answered from patient and son. Discharge plan: Home with HH
[2023-11-19 18:07] VITALS: BP 128/74; PULSE 93; TEMP 97.9
[2023-11-19 20:00] VITALS: BP_SYST 128
[2023-11-19] MEDS ORDERED: Insulin Glargine-ygfn (Lantus) SQ SCH (21:00)
--- NOTE | 2023-11-20 03:14 | NUR ---
ASSESSMENT COMPLTETED EARLIER. MEDICATIONS ADIMINSTERED PER EMAR. NO COMPLAINTS AT THIS TIME. CALL LIGHT IS WITHIN REACH. VSS. DENIES N/V. BED IN LOWEST POSITON.
[2023-11-20 05:19] VITALS: BP 124/72; PULSE 92; TEMP 97.7
[2023-11-20 07:00] VITALS: BP_SYST 124
--- NOTE | 2023-11-20 08:45 | NUR ---
PT UP FOR BREAKFAST. ATE 100 % OF AM MEAL. WORKING WITH OT THIS AM. PLAN ON DISCHARGE HOME 11/20. PT DENIES NEEDS AT THIS TIME. DRESSINGS CDI. PT PLANS ON FOLLOWING UP WITH WOUND CARE AND ORTHOPAEDICS OUT PATIENT,
--- NOTE | 2023-11-20 13:20 | NUR ---
The Interdisciplinary team discussed making the patient Independent in her room during Team Huddle. Her current Levy Fall Score is moderate at 40 as nursing documented. Unable to complete the [place] d/t the BKA. She has been managing transfers to & from the wheelchair w/ good safety awareness. The team feels she is capable of being Independent in her room from the wheelchair as she is aware of her deficits/limitations & cognitively able to problem solve her situations.--Mayra Weir, PD
--- NOTE | 2023-11-20 13:47 | NUR ---
NENITA sent clincial updates to [facility]. Planning for discharge tomorrow. Discharge plan: Home with HH
[2023-11-20] MEDS ORDERED: metFORMIN 500 MG TAB PO SCH (17:00)
--- NOTE | 2023-11-20 17:52 | NUR ---
DRESSING CHANGE COMPLETE PER PT HOME INSTRUCTIONS. PT TOLERATED WELL.
[2023-11-20 18:27] VITALS: BP 125/74; PULSE 95; TEMP 98
--- NOTE | 2023-11-20 19:05 | NUR ---
PT SITTING ON SIDE OF BED. NO COMPLAINTS AT THIS TIME. CALL LIGHT IS WITHIN REACH.
[2023-11-20 19:10] VITALS: BP_SYST 125
[2023-11-20] MEDS ORDERED: Insulin Glargine-ygfn (Lantus) SQ SCH (21:00)
--- NOTE | 2023-11-20 22:19 | NUR ---
ASSESSMENT COMPLETED EARLIER. MEDICATIONS ADMINISTERED PER EMAR. NO COMPLAINTS AT THIS TIME. CALL LIGHT IS WITHIN REACH. POSSESSIONS ARE WITHIN REACH. DENIES N/V AT THIS TIME. VSS.
[2023-11-21 06:08] VITALS: BP 108/70; PULSE 76; TEMP 97.5
[2023-11-21 07:00] VITALS: BP_SYST 108
[2023-11-21] MEDS ORDERED: Glimepiride 2 MG TAB PO SCH (08:00)
--- NOTE | 2023-11-21 08:30 | NUR ---
PT A&OX4. VSS. PT IS MODIFIED INDEPENDENT IN ROOM W/ W/C FOR TRANSFERS. SHIFT ASSESSMENT COMPLETE AND MEDICATIONS ADMINISTERED. PT SITTING UP ON SIDE OF BED EATING BREAKFAST. READY TO GO HOME TODAY. PERSONAL BELONGINGS PACKED UP BY PT. NO FURTHER NEEDS AT THIS TIME. CALL LIGHT WITHIN REACH.
[2023-11-21] MEDS ORDERED: Empagliflozin 10 MG TAB PO SCH (09:00)
[2023-11-21] MEDS ORDERED: Dapagliflozin 10 MG **** subs to Empagliflozin 10 MG PO SCH (09:00)
[2023-11-21] MEDS ORDERED: CONTROL SOLUTI1 EAC1 MC (10:09)
[2023-11-21] MEDS ORDERED: FREESTYLE PREC1 EAC5 MC (10:09)
[2023-11-21] MEDS ORDERED: GLUCAGON EMERGEN1 M1 SQ (10:09)
[2023-11-21] MEDS ORDERED: LANCETS MC (10:09)
[2023-11-21] MEDS ORDERED: GLUTOSE 1515 GM PO (10:09)
[2023-11-21] MEDS ORDERED: GLUCOSE TEST ST1 DEV MC (10:09)
[2023-11-21] MEDS ORDERED: INSULIN PEN NE1 EAC1 MC (10:09)
[2023-11-21] MEDS ORDERED: BD ALCOHOL1 SWA MC (10:09)
[2023-11-21] MEDS ORDERED: NEURONTIN100 MG/CAP PO (10:14)
[2023-11-21] MEDS ORDERED: LANTUS SOLOS100 U/ML SQ (10:16)
[2023-11-21] MEDS ORDERED: ROXICODONE 55 MG/TAB PO (10:16)
--- NOTE | 2023-11-21 11:15 | NUR ---
DISCHARGE TEACHING/INSTRUCTIONS COMPLETED WITH PT W/ SON AT BEDSIDE. PT AND FAMILY VERBALIZED UNDERSTANDING OF TEACHING AND ALL QUESTIONS THEY HAD WERE ANSWERED. PT TAKEN DOWN TO EXIT BY MYSELF IN W/C. SON TAKING PT HOME IN POV. PT MADE IT INTO VEHICLE W/ MINIMUM ASSIST.
--- NOTE | 2023-11-21 12:33 | NUR ---
Patient stable for discharge to home today with [facility]. SW met with patient and verified that her wheelchair had been delivered. Patient stated it has been delivered and she has gotten a walker. Discharge orders and updated clinicals sent to [facility]. All questions answered. Patient's son arrived to drive her home. Discharge plan: Home with HH
--- NOTE | 2023-11-22 12:49 | NUR ---
Discharge QIM scores were reviewed by the team. Code of 6 chosen for toileting hygiene was determined by team discussion to be the most usual performance for this patient during the discharge assessment period. Code of 6 chosen for toilet transfers was determined by team discussion to be the most usual performance for this patient during the discharge assessment period. Code of 6 chosen for lower body dressing was determined by team discussion to be the most usual performance for this patient during the discharge assessment period. Code of 6 chosen for sit to lying was determined by team discussion to be the most usual performance for this patient during the discharge assessment period. Code of 6 chosen for lying to sitting was determined by team discussion to be the most usual performance for this patient during the discharge assessment period. Code of 6 chosen for sit to stand was determined by team discussion to be the most usual performance for this patient during the discharge assessment period. Code of 6 chosen for chair to bed was determined by team discussion to be the most usual performance for this patient during the discharge assessment period. Code of 6 chosen for walking 10 feet was determined by team discussion to be the most usual performance for this patient during the discharge assessment period.--Mayra Weir,
== END 2023-11-21 11:29 | disposition home health service (06) | DRG 560 ==
PROVIDERS: ADMIT Physical Medicine & Rehabilitation Sports Medicine
DX: Z47.81 Encounter for orthopedic aftercare following surgical amputation (principal); I50.42 Chronic combined systolic (congestive) and diastolic (congestive) heart failure; L97.419 Non-pressure chronic ulcer of right heel and midfoot with unspecified severity; L03.115 Cellulitis of right lower limb; E11.9 Type 2 diabetes mellitus without complications; R26.89 Other abnormalities of gait and mobility; I11.0 Hypertensive heart disease with heart failure; I25.10 Atherosclerotic heart disease of native coronary artery without angina pectoris; E78.5 Hyperlipidemia, unspecified; Z74.09 Other reduced mobility; D50.9 Iron deficiency anemia, unspecified; G54.7 Phantom limb syndrome without pain; E05.90 Thyrotoxicosis, unspecified without thyrotoxic crisis or storm; F39 Unspecified mood [affective] disorder; F17.210 Nicotine dependence, cigarettes, uncomplicated; Z89.512 Acquired absence of left leg below knee; Z79.82 Long term (current) use of aspirin; Z79.899 Other long term (current) drug therapy; Z79.2 Long term (current) use of antibiotics; Z79.84 Long term (current) use of oral hypoglycemic drugs; R05.9 Cough, unspecified
CPT/HCPCS: A9270; J1650; J1815